=== PATIENT | female | born 1980 | race Caucasian/White ===

== ENCOUNTER → 2017-12-28 03:09 | Outpatient (CLI) | payer OTHER, SELFPAY ==
[2017-12-28 09:33] LABS: ALT 17 U/L (12-78); AST 10 U/L (15-37); Albumin 3.8 g/dL (3.4-5.0); Alkaline Phosphatase 98 U/L (46-116); Anion Gap 11.8 mmol/L (3-11); BUN 9 mg/dL (7-18); Bilirubin, Total 0.4 mg/dL (0.2-1.0); CO2 23.2 mmol/L (21.0-32.0); CREATININE 0.76 mg/dL (0.55-1.02); Calcium 8.9 mg/dL (8.5-10.1); Chloride 104 mmol/L (98-107); Cholesterol 205 mg/dL (50-200); Glucose 98 mg/dL (70-100); HDL Cholesterol 31 mg/dL (40-60); LDL CHOLESTEROL 147 mg/dL (<100); Potassium 4.4 mmol/L (3.5-5.1); Sodium 139 mmol/L (136-145); TSH (W/Ref FT4) 1.38 uIU/mL (0.358-3.74); Total Protein 7.3 g/dL (6.4-8.2); Triglyceride 224 mg/dL (30-150)
== END ==
DX: Z00.00 Encounter for general adult medical examination without abnormal findings (principal); E78.2 Mixed hyperlipidemia; R63.8 Other symptoms and signs concerning food and fluid intake; Z83.49 Family history of other endocrine, nutritional and metabolic diseases
CPT/HCPCS: 36415; 80053; 80061; 83721; 84443

== ENCOUNTER 2018-06-22 00:52 | Outpatient (CLI) | payer OTHER, SELFPAY ==
--- NOTE | 2018-06-22 07:59 | DI.RAD_ITS ---
SYMPTOM/DIAGNOSIS: RT HIP PAIN, M25.559 RIGHT HIP AND PELVIS: Two views were obtained. There appear to be mild degenerative changes of the lower lumbar spine and SI joints. There is minimal acetabular spurring bilaterally. No other significant bony abnormality is seen. Cartilaginous joint spaces of the hips appear well maintained.
== END 2018-06-22 01:12 ==
PROVIDERS: Visit Provider Emergency Medicine
DX: M25.551 Pain in right hip (principal); M47.816 Spondylosis without myelopathy or radiculopathy, lumbar region
CPT/HCPCS: 73502

== ENCOUNTER 2018-07-11 00:28 | Outpatient (CLI) | payer OTHER, SELFPAY ==
--- NOTE | 2018-07-11 10:06 | DI.MRI_ITS ---
SYMPTOM/DIAGNOSIS: RT HIP PAIN, S73.191A, S/P DISLOCATION A CHILD RIGHT HIP MRI: Routine noncontrast examination was performed. There is normal marrow signal. No evidence of an acute fracture or avascular necrosis is seen. The muscles show normal signal and size. No significant muscular fatty atrophy is appreciated. There is a normal amount of fluid in the joint space. No focal fluid collection or soft tissue mass is appreciated. The right labrum appears grossly unremarkable on this noncontrast examination. IMPRESSION: Negative MRI of the right hip.
== END 2018-07-11 00:48 ==
PROVIDERS: Visit Provider Orthopaedic Surgery
DX: M25.551 Pain in right hip (principal)
CPT/HCPCS: 73721

== ENCOUNTER 2018-12-18 00:14 | Outpatient (CLI) | payer OTHER, SELFPAY ==
--- NOTE | 2018-12-18 08:44 | DI.MAMMO_ITS ---
SYMPTOM/DIAGNOSIS: SCREENING, Z12.31 MAMMOGRAMS: Mammograms were interpreted according to the usual protocol including computer analysis with CAD system, tomosynthesis and C view imaging. This is a baseline examination. The breasts are composed of scattered fibroglandular densities, breast density, Category B. No suspicious masses or suspicious microcalcifications are seen. IMPRESSION: Category 1, negative mammogram. Yearly screening mammography is recommended. [facility] ASSESSMENT OF FINDINGS: Negative. Category 1. Patient will receive a letter notifying them of these results. BI-RADS category B. There are scattered areas of fibroglandular density.
[2018-12-18 09:49] LABS: ALT 24 U/L (12-78); AST 13 U/L (15-37); Albumin 3.7 g/dL (3.4-5.0); Alkaline Phosphatase 91 U/L (46-116); Anion Gap 11.3 mmol/L (3-11); BUN 12 mg/dL (7-18); Bilirubin, Total 0.4 mg/dL (0.2-1.0); CO2 24.7 mmol/L (21.0-32.0); CREATININE 0.67 mg/dL (0.55-1.02); Calcium 9.1 mg/dL (8.5-10.1); Chloride 104 mmol/L (98-107); Glucose 96 mg/dL (70-100); Sodium 140 mmol/L (136-145); Total Protein 7.2 g/dL (6.4-8.2)
== END 2018-12-18 00:34 ==
DX: Z12.31 Encounter for screening mammogram for malignant neoplasm of breast; Z00.00 Encounter for general adult medical examination without abnormal findings; Z13.1 Encounter for screening for diabetes mellitus
CPT/HCPCS: 36415; 77063; 77067; 80053

== ENCOUNTER 2019-01-18 17:08 | Outpatient (REF) | payer OTHER, SELFPAY ==
--- NOTE | 2019-01-18 16:00 | PAPFT_PTH ---
PATIENT: Kati Zamarripa LOC: [facility] U#:[id number] AGE/SX: 38/F ROOM: RE01/18/[address]: Daniela Estrada APRN : 1980 BED: DIS: 01/18/2019 SPEC #: [id number] RECD: 01/19/19 13:07 STATUS: CHRISTY GUZMÁN #: [id number] BRIAN: 01/18/19 16:[address]: Daniela Estrada DEPT: [facility] [place] Cytology RECD BY: Debra Palacios Tissues: 1 - CX/ENDOCX FOR PAP SMEARS Procedures: PAP THIN PREP/UVM Screening HPV DNA PROBE Comments: [id number]
== END 2019-01-18 17:28 ==
LOC: LBN 17:08
DX: Z12.4 Encounter for screening for malignant neoplasm of cervix (principal); Z11.51 Encounter for screening for human papillomavirus (HPV)
CPT/HCPCS: 88142; 87624

== ENCOUNTER 2019-04-24 07:00 | Outpatient (CLI) | payer OTHER, SELFPAY ==
[2019-04-24 11:03] LABS: HCT 43.4 % (36.0-46.0); HGB 14.5 g/dL (12.0-15.5); Mean Corp. HGB Concentration 33.4 g/dL (32.0-36.0); Mean Corpuscular Hemoglobin 32.4 pg (27.0-33.0); Mean Corpuscular Volume 96.9 fL (80-95); Mean Platelet Volume 9.6 fL (8.0-11.0); Platelet Count 454 x1000/uL (130-400); RBC 4.48 m/cumm (4.00-5.20); RBC Distribution Width 12.2 % (11.7-14.6); White Blood Cell Count 14.66 k/cumm (4.4-10.8)
[2019-04-24 13:23] LABS: Abs Immature Grans 0.03 k/cumm (0.0-0.09); Absolute Basophil Count 0.06 k/cumm (0.0-0.2); Absolute Eosinophil Count 0.14 k/cumm (0.0-0.7); Absolute Lymphocyte Count 2.78 k/cumm (1.2-3.4); Absolute Monocyte Count 1.04 k/cumm (0.11-0.7); Absolute Neutrophil Count 10.33 k/cumm (1.2-6.7); Basophils % 0.4; Immature Grans % 0.2; Lymphocytes % 19.3; Monocytes % 7.2; Neutrophils % 71.9
== END 2019-04-24 07:20 ==
PROVIDERS: Visit Provider Nurse Practitioner
DX: D72.829 Elevated white blood cell count, unspecified (principal)
CPT/HCPCS: 36415; 85027; 85007; 85025

== ENCOUNTER 2019-07-24 09:17 | Outpatient (CLI) | payer OTHER, SELFPAY ==
[2019-07-24 10:02] LABS: Abs Immature Grans 0.02 k/cumm (0.0-0.09); Absolute Basophil Count 0.06 k/cumm (0.0-0.2); Absolute Eosinophil Count 0.15 k/cumm (0.0-0.7); Absolute Lymphocyte Count 3.44 k/cumm (1.2-3.4); Absolute Monocyte Count 0.87 k/cumm (0.11-0.7); Absolute Neutrophil Count 6.71 k/cumm (1.2-6.7); Basophils % 0.5; Eosinophils % 1.3; HCT 44.4 % (36.0-46.0); HGB 15.4 g/dL (12.0-15.5); Immature Grans % 0.2 %; Lymphocytes % 30.6; Mean Corp. HGB Concentration 34.7 g/dL (32.0-36.0); Mean Corpuscular Hemoglobin 32.9 pg (27.0-33.0); Mean Corpuscular Volume 94.9 fL (80-95); Mean Platelet Volume 9.2 fL (8.0-11.0); Monocytes % 7.7; Neutrophils % 59.7; Platelet Count 467 x1000/uL (130-400); RBC 4.68 m/cumm (4.00-5.20); RBC Distribution Width 12.5 % (11.7-14.6); White Blood Cell Count 11.24 k/cumm (4.4-10.8)
[2019-07-24 10:39] LABS: HCG Quant, Pregnancy < 1 mIU/mL (1-3)
== END 2019-07-24 09:37 ==
PROVIDERS: Visit Provider Obstetrics & Gynecology
DX: Z30.09 Encounter for other general counseling and advice on contraception (principal)
CPT/HCPCS: 36415; 84702; 85025

== ENCOUNTER 2019-07-26 06:36 | Day surgery (SDC) | payer OTHER, SELFPAY ==
[2019-07-26 06:40] VITALS: BP 123/77; PULSE 98; RESP 18; TEMP 36.5; O2SAT 98
[2019-07-26] MEDS: Lactated Ringers 1,000 ML 125 ML IV (07:05)
[2019-07-26] MEDS: Bupivacaine 0.25% Pres-Free 30 ML VIAL (07:50)
--- NOTE | 2019-07-26 08:04 | FALL_PTH ---
PATIENT: Kati Zamarripa LOC: [facility] U#:[id number] AGE/SX: 38/F ROOM: RE07/26/[address]: Vic Ott MD : 1980 BED: DIS: 07/26/2019 SPEC #: [id number] RECD: 07/26/19 12:45 STATUS: CHRISTY REQ #: [id number] BRIAN: 07/26/19 08:[address]: Vic Ott DEPT: Surgical Specimen RECD BY: Debra Palacios ENTERED: 07/26/19 12:46 SP TYPE: Fall OTHR DR: Daniela Estrada APRN Tissues: 1 - FALLOPIAN TUBE (STERILIZATION) 2 - FALLOPIAN TUBE (STERILIZATION) Procedures: GROSS AND MICRO LEVEL 2 Comments: [id number]
[2019-07-26 08:27] VITALS: BP 111/57; PULSE 93; RESP 17; TEMP 36.6; O2SAT 98
[2019-07-26 08:32] VITALS: BP 98/76; PULSE 91; RESP 19; TEMP 36.6; O2SAT 97
[2019-07-26 08:37] VITALS: BP 108/66; PULSE 90; RESP 15; TEMP 36.6; O2SAT 98
[2019-07-26 08:52] VITALS: BP 108/55; PULSE 87; RESP 17; TEMP 36.4; O2SAT 98
[2019-07-26 09:36] VITALS: BP 114/72; PULSE 87; RESP 18; TEMP 36.5; O2SAT 97
--- NOTE | 2019-07-26 12:20 | ROE_ITS ---
Date of service: 07/26/19 Time of Service: 12:20 Operative Note Operative Note DATE OF PROCEDURE: 07/26/19 PRE-OP DIAGNOSIS: Multiparity and desire for permanent sterilization POST-OP DIAGNOSIS: same PROCEDURE: Laparoscopic bilateral salpingectomy SURGEON: Vic Ott ASSISTING SURGEON: Rachel Gaxiola ANESTHESIA: GETA and local ESTIMATED BLOOD LOSS: 5 PATHOLOGY: other (Bilateral fallopian tubes) COMPLICATIONS: None Patient was transported to: PACU Patient's condition: stable Findings: Normal uterus, tubes and ovaries Procedure Description: The patient was taken to the operating room and after adequate general anesthesia was obtained the patient was placed in supine position. The patient was prepped and draped in the usual sterile manner. The skin and subcutaneous tissues at the umbilicus were infiltrated with 0.25% Marcaine solution. A small infraumbilical skin incision was then made with a #15 blade scalpel. Sharp dissection was carried down to the underlying layer of fascia. The fascia was grasped and elevated with 2 Cali clamps and incised sharply with the scalpel the peritoneum was entered sharply with a hemostat and S retractors were placed. 2 sutures of 0 Vicryl were placed on either side of the fascial incision. The 10 mm balloon trocar was advanced through the inc ision and secured in place. A pneumoperitoneum to approximately 15 mmHg was established. Two 5 mm ports were placed in the right lower and left lower quadrants both under direct visualization. Laparoscopic exam was normal. Uterus, tubes and ovaries were normal in appearance. Dissection was first carried across the right mesosalpinx with the LigaSure device. Dissection was carried to the proximal fallopian tube which was transected. The fallopian tube was removed from the abdomen. A similar procedure was carried out on the opposite side. Excellent hemostasis was noted. Both ovaries were noted to be normal in appearance. The 5 mm trochars were removed. The abdomen was desufflated and the 10 mm umbilical port was removed. The fascia at the umbilicus was closed with the 2 previously placed sutures of 0 Vicryl. Skin incisions were closed with interrupted sutures of 4 Monocryl and Dermabond was applied. Sponge, lap and needle counts were correct at the conclusion of the procedure. The patient was transferred to PACU in stable condition.
== END 2019-07-26 10:00 | disposition home or self-care (01) ==
PROVIDERS: Visit Provider Obstetrics & Gynecology
PROC: (CPT 58661; principal; 2019-07-26 07:30)
DX: Z30.2 Encounter for sterilization (principal)
CPT/HCPCS: 58661; 88302; J1100; J1885; J2250; J2405; J2704

== ENCOUNTER 2020-01-09 01:10 | Outpatient (CLI) | payer OTHER, SELFPAY ==
--- NOTE | 2020-01-09 06:15 | DI.MAMMO_ITS ---
EXAM: MG MAMMO SCREENING CLINICAL HISTORY: screening,Z12.39 TECHNIQUE: Mammograms were interpreted according to the usual protocol including computer analysis w E-Semble CAD system, tomosynthesis and C-view imaging. COMPARISON: FINDINGS: The breasts are of moderate density with fairly symmetrical distribution of fibroglandular tissue. N o dominant mass or clumped microcalcification is identified in either breast. The current examinatio n is compared with previous examination of December 2018 there has been no gross interval change appear ance comparison with previous study. IMPRESSION: No specific evidence of malignancy at this time. Routine screening examinations are suggested at yea rly intervals in this age group according to the ACR guidelines. BI-RADS Category 1 - Negative Breast Density - Category B - Scattered areas of fibroglandular density
== END 2020-01-09 01:30 ==
DX: Z12.31 Encounter for screening mammogram for malignant neoplasm of breast (principal); R92.2 Inconclusive mammogram
CPT/HCPCS: 77063; 77067

== ENCOUNTER 2020-02-15 04:26 | Outpatient (CLI) | payer OTHER, SELFPAY ==
[2020-02-15 08:26] LABS: Abs Immature Grans 0.03 10^3/uL (0.0-0.06); Absolute Basophil Count 0.09 10^3/uL (0.0-0.2); Absolute Lymphocyte Count 3.14 10^3/uL (1.2-3.4); Absolute Monocyte Count 0.96 10^3/uL (0.1-0.8); Basophils % 0.7; Eosinophils % 2.4; HCT 43.2 % (36.0-46.0); HGB 14.8 g/dL (11.2-15.7); Immature Grans % 0.2; Lymphocytes % 24.9; MCH 32.2 pg (27.0-33.0); MCHC 34.3 % (32.0-36.0); MCV 94.1 fL (80-95); MPV 9.5 fL (8.0-11.0); Monocytes % 7.6; Neutrophils % 64.2; Nucleated RBC 0 %; Platelet Count 496 10^3/uL (130-400); RBC 4.59 10^6/uL (3.93-5.22); RDW 12.1 % (11.7-14.6); RDW-SD 41.9 fL; WBC 12.61 10^3/uL (4.4-10.8)
[2020-02-15 09:03] LABS: ALT 24 U/L (14-59); AST 11 U/L (15-37); Albumin 3.8 g/dL (3.4-5.0); Alkaline Phosphatase 106 U/L (46-116); Anion Gap 7.1 mmol/L (3-11); BUN 12 mg/dL (7-18); Bilirubin, Total 0.2 mg/dL (0.2-1.0); CO2 24.9 mmol/L (21.0-32.0); CREATININE 0.68 mg/dL (0.55-1.02); Calcium 9.3 mg/dL (8.5-10.1); Calculated LDL 144 mg/dL (<100); Chloride 103 mmol/L (98-107); Cholesterol 249 mg/dL (<200); Glucose 108 mg/dL (74-106); HDL Cholesterol 34 mg/dL (40-60); Potassium 4.3 mmol/L (3.5-5.1); Sodium 135 mmol/L (136-145); Total Protein 7.3 g/dL (6.4-8.2); Triglyceride 359 mg/dL (<150)
== END 2020-02-15 04:46 ==
DX: Z00.00 Encounter for general adult medical examination without abnormal findings (principal); E78.5 Hyperlipidemia, unspecified; D72.829 Elevated white blood cell count, unspecified
CPT/HCPCS: 36415; 80053; 80061; 85025

== ENCOUNTER 2021-01-21 02:29 | Outpatient (CLI) | payer OTHER, SELFPAY ==
--- NOTE | 2021-01-21 07:40 | DI.MAMMO_ITS ---
Exam(s) MAMMO SCREENING EXAM: MAMMO SCREENING CLINICAL HISTORY: screening,Z12.39. TECHNIQUE: Bilateral full field digital CC and MLO mammographic images were obtained with 3D tomosyn thesis and utilizing computer aided detection (CAD). COMPARISON: Prior mammograms dating back to 2018, the most recent being December 2019. FINDINGS: There has been no significant change in the appearance and distribution of the fibroglandular tissue. There are no new spiculated masses nor malignant appearing microcalcification groups. Benign-appearing nodule in the right breast is unchanged from prior studies has the appearance a osman gn lymph node There is no significant architectural distortion nor skin thickening-retraction. IMPRESSION: Stable benign findings. No radiographic evidence of malignancy BI-RADS Category 2 - Benign Findings Breast Density - Category B - Scattered areas of fibroglandular density Breast density Category C or D implies that the patient has dense breast tissue. Dense breast tissue can make it harder to find cancer on a mammogram. Dense breast tissue is also associated with an incr eased risk of breast cancer. This information about the result of the mammogram report was provided to the patient to raise their awareness. Use this report when you speak with the patient about their risks for breast cancer, which includes their family history. At that time, you may recommend additional screening tests (Ultrasoun d or MRI) as these tests may add significant information. A negative radiographic report should not delay biopsy if a dominant or clinically suspicious mass is present. Up to ten percent of cancers are not identified on mammography. A negative report may reinforce clinical impression. Adenosis and dense breasts may obscure an underlying neoplasm. False positive reports average 6 to 10%. Patient will receive a letter notifying them of these results.
== END 2021-01-21 02:49 ==
DX: Z12.31 Encounter for screening mammogram for malignant neoplasm of breast (principal)
CPT/HCPCS: 77063; 77067

== ENCOUNTER 2021-09-16 08:55 | Outpatient (REF) | payer OTHER, SELFPAY ==
--- NOTE | 2021-09-16 08:30 | PAPFT_PTH ---
PATIENT: Kati Zamarripa LOC: [facility] U#:[id number] AGE/SX: 40/F ROOM: RE09/16/[address]: Curtis Westfall NP : 1980 BED: DIS: 09/16/2021 SPEC #: [id number] RECD: 09/16/21 15:35 STATUS: CHRISTY REKeenan #: [id number] BRIAN: 09/16/21 08:[address]: Curtis Westfall DEPT: [facility] [place] Cytology RECD BY: Sole Gomez ENTERED: 09/16/21 15:36 SP TYPE: PAPFT OTHR DR: Daniela Estrada APRN Tissues: 1 - CX/ENDOCX FOR PAP SMEARS Procedures: PAP THIN PREP/UVM Screening HPV DNA PROBE Comments: [id number]
== END 2021-09-16 08:56 | disposition home or self-care (01) ==
LOC: LBN 08:55
PROVIDERS: Visit Provider Nurse Practitioner Family
DX: Z12.4 Encounter for screening for malignant neoplasm of cervix (principal); Z11.51 Encounter for screening for human papillomavirus (HPV)
CPT/HCPCS: 88142; 87624

== ENCOUNTER → 2022-01-25 01:55 | Outpatient (CLI) | payer OTHER, SELFPAY ==
--- NOTE | 2022-01-25 07:41 | DI.MAMMO_ITS ---
Exam(s) MAMMO SCREENING EXAM: MAMMO SCREENING CLINICAL HISTORY: screening,Z12.39. TECHNIQUE: Bilateral full field digital CC and MLO mammographic images were obtained with 3D tomosyn thesis and utilizing computer aided detection (CAD). COMPARISON: Prior mammograms were reviewed, the most recent being January 2021.. FINDINGS: There has been no significant change in the appearance and distribution of the fibroglandular tissue There are no new spiculated masses nor malignant appearing microcalcification groups. Benign-appearing lymph node in the right breast is unchanged prior studies There is no significant architectural distortion nor skin thickening-retraction. IMPRESSION: No radiographic evidence of malignancy. BI-RADS Category 1 - Negative Breast Density - Category B - Scattered areas of fibroglandular density Breast density Category C or D implies that the patient has dense breast tissue. Dense breast tissue can make it harder to find cancer on a mammogram. Dense breast tissue is also associated with an incr eased risk of breast cancer. This information about the result of the mammogram report was provided to the patient to raise their awareness. Use this report when you speak with the patient about their risks for breast cancer, which includes their family history. At that time, you may recommend additional screening tests (Ultrasoun d or MRI) as these tests may add significant information. A negative radiographic report should not delay biopsy if a dominant or clinically suspicious mass is present. Up to ten percent of cancers are not identified on mammography. A negative report may reinforce clinical impression. Adenosis and dense breasts may obscure an underlying neoplasm. False positive reports average 6 to 10%. Patient will receive a letter notifying them of these results.
== END ==
PROVIDERS: PCP Nurse Practitioner Family; Visit Provider Nurse Practitioner Family
DX: Z12.31 Encounter for screening mammogram for malignant neoplasm of breast (principal)
CPT/HCPCS: 77063; 77067

== ENCOUNTER 2023-01-21 02:05 | Outpatient (CLI) | payer OTHER, SELFPAY ==
[2023-01-21 07:50] LABS: Hemoglobin A1C 5.7 % (<5.7)
[2023-01-21 08:18] LABS: Calculated LDL 109 mg/dL (<100); Cholesterol 232 mg/dL (<200); HDL Cholesterol 44 mg/dL (40-60); Triglyceride 397 mg/dL (<150)
== END 2023-01-21 02:06 | disposition home or self-care (01) ==
LOC: LBO 02:06
PROVIDERS: PCP Nurse Practitioner Family; Visit Provider Nurse Practitioner Family
DX: E78.5 Hyperlipidemia, unspecified (principal); Z13.1 Encounter for screening for diabetes mellitus
CPT/HCPCS: 36415; 80061; 83036

== ENCOUNTER 2023-02-16 10:25 | Outpatient (CLI) | payer OTHER, SELFPAY ==
--- NOTE | 2023-02-16 09:00 | DI.RAD_ITS ---
Exam(s) XR KNEE LT 3V AP,LAT,PRIYANKA EXAM: XR KNEE LT 3V AP,LAT,PRIYANKA CLINICAL HISTORY: left knee pain. TECHNIQUE: 2D digital imaging was performed. Three views. COMPARISON: No exams were available for comparison FINDINGS: BONES: No acute fracture is present. No bony destructive lesion is seen. There has been prior ACL re pair. Screws also noted in the proximal tibia in the region of the tibial tubercle. There are enthe sophytes at the patella. There is mild spurring at the patellofemoral joint. There is mild narrowin g of the medial femoral tibial joint space. There is spurring from the medial femoral condyle and me dial tibial plateau. JOINTS: The knee is normally aligned. A small joint effusion is seen. There is a loose body visible a nterior to the level of the tibial spines. SOFT TISSUE: Normal. IMPRESSION: Postsurgical and degenerative changes. Small joint effusion and joint space loose body. DATA REPOSITORY: RADIATION DOSE DELIVERED:
== END 2023-02-16 10:26 | disposition home or self-care (01) ==
LOC: DIORS 10:25
PROVIDERS: PCP Nurse Practitioner Family; Visit Provider Student in an Organized Health Care Education/Training Program
DX: M25.562 Pain in left knee (principal); Z98.890 Other specified postprocedural states
CPT/HCPCS: 73562

== ENCOUNTER → 2023-06-02 02:34 | Outpatient (CLI) | payer OTHER, SELFPAY ==
--- NOTE | 2023-06-02 07:00 | DI.MRI_ITS ---
Exam(s) MR LOWER JOINT LT WO EXAM: MR LOWER JOINT LT WO CLINICAL HISTORY: pain,internal derangement lt knee,m23.92. TECHNIQUE: Multiplanar multisequence MRI was performed. COMPARISON: CR XR KNEE LT 3V AP,LAT,PRIYANKA from 02/16/2023 FINDINGS: BONES: There is no fracture or contusion pattern. Screws noted in distal femur and proximal tibia r elated to prior ACL repair. Spurring from the femoral condyles and tibial plateaus. JOINTS: A moderate sized joint effusion is present. An 11 Millin ovoid loose body is noted in the j oint effusion adjacent to the lateral femoral condyle. Articular cartilage: Patellofemoral joint: Focal defect seen at patellar apex extending nearly down to bone. Some thinning of cartilage over medial patellar facet. Medial femoral tibial joint: Articular cartilage is unremarkable. Lateral femoral tibial joint: Articular cartilage is unremarkable. TENDONS: Extensor mechanism: Unremarkable. Medial retinaculum: Unremarkable. Lateral retinaculum: Unremarkable. Popliteus: Unremarkable. MUSCLES: Unremarkable. MENISCI: The medial meniscus shows a longitudinally oriented tear in the posterior horn. Degenerative changes in the body. The lateral meniscus is unremarkable. SOFT TISSUES: Tiny Page's cyst containing 3 millimeter loose body.. LIGAMENTS: Anterior Cruciate: ACL repair. Intact. Posterior Cruciate: Unremarkable. Medial Collateral:Unremarkable. Lateral Collateral: Unremarkable. IMPRESSION: Longitudinally oriented tear of the posterior horn of the medial meniscus. Intact ACL repair. Focal cartilage defect at patellar apex extending nearly down to bone. Moderate joint effusion with loose body adjacent to lateral femoral condyle. Small Page's cyst with loose body. DATA REPOSITORY:
== END ==
PROVIDERS: PCP Nurse Practitioner Family; Visit Provider Student in an Organized Health Care Education/Training Program
DX: M23.222 Derangement of posterior horn of medial meniscus due to old tear or injury, left knee (principal)
CPT/HCPCS: 73721

== ENCOUNTER 2023-07-28 11:05 | Day surgery (SDC) | payer OTHER, SELFPAY ==
[2023-07-28] VITALS (8 sets, daily range): BP systolic 103–143; BP diastolic 56–82; PULSE 85–91; RESP 16–26; TEMP 36.4–37; O2SAT 93–99; BMI 39.6
--- NOTE | 2023-07-28 10:01 | W.PM.DSUDISC ---
Date of service: 07/28/23 Time of Service: 15:00 Discharge Plan Disposition Patient Disposition: Home Discharge Details Attending Provider: Fidencio Kamara Primary Care Provider: Curtis Westfall Home Meds and New Rx's Prescriptions: New aspirin 81 mg tablet,delayed release (DR/EC) 81 mg PO DAILY 14 Days Qty: 14 0RF naproxen 250 mg tablet 250 - 500 mg PO BID PRNQty: 40 0RF Rx Instructions: take with a meal Continued acetaminophen [Tylenol] 325 mg capsule 325 mg PO ONCE PRN naproxen 250 mg tablet 250 mg PO BID PRN Discontinued ibuprofen 200 mg tablet 200 mg PO Q6H PRN Discharge Instructions Additional Instructions: Surgery: Left knee arthroscopy with loose body removal, partial medial and lateral meniscectomy, and extensive debridement; Significant medial and patellofemoral chondromalacia Activity: Weightbearing as tolerated. Advance range of motion as comfort allows. No knee brace or crutches needed as soon as comfortable. Recommend avoiding sports, pivoting, and squatting for 6-8 weeks. A physical therapy prescription will be sent electronically to start in 2 to 3 weeks. Prescriptions: Aspirin 81 mg take 1 daily to prevent a blood clot for 14 days Naproxen 250 mg take 1-2 every 12 hours with a meal as needed for moderate pain You may use [id number]-vrz-wswzlqj Tylenol (acetaminophen) as needed for mild pain. These pain medications may be taken all at once or in different combinations as needed. Also, recommend Colace (docusate) as a stool softener as surgery and pain medicine cause constipation. You may try nfkt-orj-elrkovl diphenhydramine (Benadryl) 25-50 mg nightly as a sleep aid Dressings: Leave dressing in place for 3 days. May then remove and leave open to air or cover incisions with Band-Aids. Leave the sticky Steri-Strips in place until they fall off or remove them after you shower. May shower after 5 days. Follow-up: 10-[address] Kamara You may take off the leg compression stockings this evening at home. You may also leave them on a few days longer if you have a history of leg swelling or edema. Let us know right away if you develop any redness, drainage, fevers, chest pain, or trouble breathing. Do not drink alcohol or drive for at least 24 hours after anesthesia. Please call the office during business hours with any questions or concerns. DS: Diagnosis Discharge Diagnosis (1) Loose body of left knee: Status: Acute (2) Acute medial meniscus tear of left knee: Status: Acute (3) Chondromalacia, left knee: Status: Acute
--- NOTE | 2023-07-28 10:04 | ROE_ITS ---
Date of service: 07/28/23 Time of Service: 14:30 Operative Note Operative Note DATE OF PROCEDURE: 07/28/23 PRE-OP DIAGNOSIS: Left knee 1. Medial meniscus tear 2. Loose body 3. Chondromalacia POST-OP DIAGNOSIS: same Left knee 1. Medial & lateral meniscus tears 2. Loose body removal 3. Chondromalacia PROCEDURE: Left knee arthroscopy with: 1. Partial medial lateral meniscectomy, CPT #06952 2. Loose body removal, CPT# 45235 3. Extensive debridement, CPT# 22324: Including intercondylar osteochondroplasty, debride partial ACL tearing and cyclops lesion, patellar and trochlear chondroplasty, and suprapatellar lysis of adhesions SURGEON: Fidencio Kamara RESEARCH QUALITY ASSURANCE ANALYST: None None ANESTHESIA TYPE: Local By Surgeon and General LMA/ETT Refer to Anesthesia Record ESTIMATED BLOOD LOSS: 1 PATHOLOGY: none sent TOURNIQUET TIME: 0 Patient was transported to: PACU Patient's condition: stable Indications: Please see complete medical record for details. Findings: Exam under anesthesia: Near full extension, flexion to about 130 degrees limited by soft tissue envelope. Stiff?stable Rojas varus and valgus. Arthroscopic findings: Obvious large ovoid loose body about 15 x 10 x 8 mm in the suprapatellar pouch. Significant grade IV chondromalacia medial femoral condyle distally and anteriorly involving the medial and patellofemoral compartments. Moderate chondromalacia throughout the remainder of the medial compartment. Moderately large intercondylar osteophytes impinging on the ACL graft. Mild to moderate chondromalacia lateral compartment. Narrowing medial compartment with degenerative type posterior horn medial meniscus tear. ACL graft with small bulbous cyclops partial lesion anterior distally and fraying of the fibers anteriorly. Small posterior horn and body separate white zone lateral meniscus tears. Procedure Description: In the operating room, general anesthesia was induced. The patient was positioned supine on the operating room table. All bony prominences were well- padded. Preoperative antibiotics were administered. The knee was prepped and draped in the usual sterile fashion. The correct patient, procedure, and side of the procedure were all verified prior to incision. Exam under anesthesia was performed. 10 cc of 0.25% bupivacaine containing epinephrine was infiltrated about the planned anteromedial and anterolateral knee arthroscopy portals. The portals were established and a complete diagnostic arthroscopy was performed with relevant findings detailed above. New portals were used in line with the skin creases her old portals were not in the best locations. Immediately the large ovoid loose body was encountered in the suprapatellar space. It measured about 15 x 10 x 8 mm. It was secured in a pituitary rongeur, but too large to remove through the standard anterior medial portal. The portal was extended and dilated. The loose body was still too large to be removed in entirety. The pituitary rongeur was used to split the loose body into 2 smaller fragments and each was carefully secured and removed under direct visualization. They were then placed into a specimen cup for the patient. An extensive debridement was then done to thoroughly optimize this relatively young patient's knee despite the higher than expected degenerative changes. Starting in the suprapatellar space, the mechanical shaver was used to perform a lysis of adhesions. The undersurface of the patella had a focal high-grade cartilage lesion and the medial trochlea had unstable cartilage flaps adjacent to the full-thickness cartilage loss more medially and distally. The mechanical shaver was used to resect and smooth the rough cartilage edges and establish as best possible smooth stable cartilage margins. Next, the intercondylar area was opened using the mechanical shaver to remove impinging osteophytes cartilage and bone largest from the medial femoral condyle. The ACL was then exposed and the prior graft had partial tearing anteriorly and a small bulbous cyclops type lesion anteriorly. The partial tear was debrided with mechanical shaver and the bulbous lesion was resected as well. The medial meniscus tear was then inspected, which was difficult given the medial compartment narrowing and surrounding degenerative changes. As best possible alternating between meniscal biter mechanical shaver the posterior horn medial meniscus tear was debrided to a stable margin. In the [id number] position, the lateral meniscus then demonstrated small tearing which was debrided with the mechanical shaver at the body and posterior horn near the root white zone tears. Under direct arthroscopic visualization an 18-gauge needle was passed into the knee from superolateral into the suprapatellar pouch. The knee was copiously irrigated with arthroscopic fluid until there was a clear effluent before being drained of all fluid. The anteromedial and anterolateral portals were closed in 3-0 Monocryl in a buried interrupted fashion. 20 cc of 0.25% bupivacaine with epinephrine containing 4 mg of morphine was infiltrated into the knee through the previously placed needle. Mastisol, Steri-Strips, and 4 x 4 gauze were applied over the incisions followed by sterile soft roll. The knee was then wrapped gently with an RUBA comressive bandage. The patient awoke from anesthesia without complication and was transferred to the recovery room in a stable condition.
[2023-07-28] MEDS: Lactated Ringers 1,000 ML 30 ML IV (11:32)
--- NOTE | 2023-07-28 12:27 | W.ANESPRE ---
General Info Date of Service Date Performed: 07/28/23 Height: 5 ft 1 in Weight: 95.2 kg Body Mass Index (BMI): 39.6 Surgical Procedure: Operation Date: 07/28/23 13:10 Proposed Procedure Side Surgeon p Knee Arthroscopy w Medial Meniscus Repair VS Meniscectomy Left Fidencio Kamara MD Meds Allergies and Home Medications Allergies Allergy/AdvReac Type Severity Reaction Status Date / Time narcotics AdvReac Other (See Uncoded 07/26/23 10:02 Comment) Home Medication Medication Instructions Recorded acetaminophen 325 mg capsule 325 mg PO ONCE PRN 02/16/23 (Tylenol) naproxen 250 mg tablet 250 mg PO BID PRN 02/16/23 Current Visit Medications: Current Medications Generic Name Dose Route Start Last Admin Trade Name Freq PRN Reason Stop Dose Admin Ringer's Solution 1,000 mls @ 30 mls/hr 07/28/23 06:00 07/28/23 11:32 IV 07/28/23 23:59 30 mls/hr INFUSION GABRIEL Administration Cefazolin Sodium/Dextrose 2 gm in 50 mls @ 100 mls/hr 07/28/23 06:00 Ancef Duplex IVPB 07/28/23 23:59 PREOP GABRIEL IV Miscellaneous Supplies 1 each 07/28/23 06:00 Iv Access IV 07/28/23 23:59 DIRECTED GABRIEL Sodium Chloride 0 ml 07/28/23 06:00 Normal Saline Flush 10 Ml Syr IV 07/28/23 23:59 PRN PRN Sodium Chloride 0 ml 07/28/23 06:00 Normal Saline 10 Ml Vial IJ 07/28/23 23:59 DIRECTED PRN Sterile Water 0 ml 07/28/23 06:00 Water,Injection,Sterile 10 Ml Vial IJ 07/28/23 23:59 DIRECTED PRN PFSH Active Problems Active Problems: Problem Status Onset Code Loose body of left knee M23.42 Acute medial meniscus tear of left knee S83.242A Chondromalacia, left knee M94.262 Diarrhea R19.7 Labial cyst N90.7 White coat syndrome without diagnosis of hypertension R03.0 Hyperlipidemia E78.5 Hypoglycemic reaction E16.1 Elevated WBC count D72.829 Increased body mass index (BMI) R63.8 Lumbar disc prolapse with compression radiculopathy 03/13/13 M51.16 Smoker 12/12/17 F17.200 Medical History Medical History Elevated BP without diagnosis of hypertension External hemorrhoid (12/12/17) Heat syncope (05/01/12) Medical History Comments:: Sometimes wakes up from anesthesia aggressive (per patient she usually wakes up swinging) Surgical History Surgical History History of tubal ligation History of knee surgery Status post foot surgery Knee surgeries [id number] Foot surgeries 2000 Tobacco Smoking/Tobacco Use Status: Current every day Tobacco Type: cigarettes Passive smoking exposure: Yes Second hand exposure: Yes Alcohol Alcohol Intake: current Alcohol intake frequency: a few times a month Alcohol type: beer Substance Use Substance use: Never Substance use type: does not use Prental History History 0 Para Hx # Term Pregnancies Multiple births Hx # Pregnancies Ectopic pregnancies AB induced Hx Number of Living Children AB spontaneous Vital Signs and Lab Results Vital Signs Most Recent Vital Signs in EMR: Most Recent Vital Signs Temp Pulse Resp BP Pulse Ox 37 C 91 H 18 143/82 H 96 07/28/23 11:18 07/28/23 11:18 07/28/23 11:18 07/28/23 11:18 07/28/23 11:18 Point of Care Results Point of Care Results: POC- Test(urine) Negative 07/28/23 11:31 Lab Results Blood Type / Crossmatch: No Data to Display Complete Blood Count: No Data to Display Complete Metabolic Panel: No Data to Display Liver Function Panel: No Data to Display Coagulation Panel: No Data to Display Cardiac Panel: No Data to Display Arterial Blood Gas: No Data to Display Venous Blood Gas: No Data to Display Pancreas Panel: No Data to Display Thyroid Panel: No Data to Display Infectious Disease: No Data to Display Blood Cultures: No Data to Display Toxicology Panel: No Data to Display Panel: No Data to Display Imaging and Studies Imaging and Studies Study information below may be from another EMR and interpreted by another provider. Please see original notes in EMR for more complete details. Other Study Summary:: L spine MRI reviewed and result in chart Anesthesia Assessment and Plan Anesthesia History Personal History: No History of Anesthesia Complications Family History: Other (aggression upon emergence per pt ) Exercise Tolerance Exercise Tolerance: Metabolic Equivalents>4 Pertinent Negatives Pertinent Negatives: No Symptoms of GERD, No Major Cardiovascular Symptoms or Complaints, No Major Pulmonary Symptoms or Complaints and No History of CVA/TIA Cardiac & Pulmonary Exam Cardiac Exam: Normal S1/S2 Heart Sounds Pulmonary Exam: Clear Bilateral Breath Sounds Implantable Cardiac Device Does patient have a Pacemaker or an ICD?: No Airway Exam Known Difficult Airway: No Mallampati Class: 2 Mouth Opening: Normal (> 3cm) Thyromental Distance: Greater than 3 cm Neck Range of Motion: Full ROM Neck Circumference: Thick Teeth Condition: Normal Dentition ASA Classification ASA Score: ASA 2 Emergency Case?: No NPO Status NPO Status: NPO Clears >2 hours, Solids >8 hours Status Status: Negative HCG Anesthesia Plan Resuscitation Status: Full Code Anesthesia Technique: General Anesthesia Airway Planned: Endotracheal Tube Monitors Used: Standard Monitors and SedLine
[2023-07-28] MEDS: ceFAZolin 2 GM/50 ML BAG IVPB (13:33)
[2023-07-28] MEDS: Tranexamic Acid 1,000 MG/10 ML VIAL 1000 MG (13:38)
[2023-07-28] MEDS: Normal Saline 100 ML 360 ML (13:38)
[2023-07-28] MEDS: EPINEPHrine 10 MG/10 ML ML (14:00)
[2023-07-28] MEDS: MORPHine 4 MG/ML SYR (14:13)
[2023-07-28] MEDS: Albuterol/Ipratropium 3 ML UPD VIAL UPD (14:43)
--- NOTE | 2023-07-28 15:13 | W.ANESPOSTOP ---
Postoperative Evaluation Date, Time and Location Date Performed: 07/28/23 Time Performed: 15:13 Patient Location: PACU Vital Signs Most Recent Imported Vital Signs: Most Recent Vital Signs Temp Pulse Resp BP Pulse Ox 36.4 C L 89 19 113/74 96 07/28/23 15:10 07/28/23 15:10 07/28/23 15:10 07/28/23 15:10 07/28/23 15:10 Pain Score Most Recent Pain Score: Most Recent Pain Score Pain Level 0 07/28/23 11:18 Assessment Mental Status: Awake (Alert & Oriented to Patient Baseline) Airway and Respiratory Function: Patent airway with normal (patient baseline) respiratory exam Cardiovascular Function: Hemodynamically Stable Hydration Status: Adequately Hydrated Nausea & Vomiting: No Nausea or Vomiting Pain: Pain is tolerable per patient Peripheral Nerve Block: Patient did not receive a nerve block
== END 2023-07-28 16:16 | disposition home or self-care (01) ==
PROVIDERS: PCP Nurse Practitioner Family; Visit Provider Student in an Organized Health Care Education/Training Program
PROC: (CPT 29880; principal; 2023-07-28 13:00)
DX: S83.242A Other tear of medial meniscus, current injury, left knee, initial encounter (principal); M23.42 Loose body in knee, left knee; M94.262 Chondromalacia, left knee; X58.XXXA Exposure to other specified factors, initial encounter
CPT/HCPCS: 29880; 29876; 81025; J0131; J0690; J1100; J1805; J1885; J2001; J2250; J2270; J2405; J2704; J7620

== ENCOUNTER 2023-09-22 01:08 | Outpatient (CLI) | payer OTHER, SELFPAY ==
[2023-09-22 11:57] LABS: ALT 25 U/L (14-59); AST 15 U/L (15-37); Albumin 3.9 g/dL (3.4-5.0); Alkaline Phosphatase 103 U/L (46-116); BUN 13 mg/dL (7-18); Bilirubin, Total 0.3 mg/dL (0.2-1.0); CREATININE 0.8 mg/dL (0.55-1.02); Calcium 9.5 mg/dL (8.5-10.1); Calculated LDL 129 mg/dL (<100); Chloride 104 mmol/L (98-107); Cholesterol 226 mg/dL (<200); Estimated GFR 93.12 (mL/min/1.73m2); Glucose 107 mg/dL (74-106); HDL Cholesterol 43 mg/dL (40-60); Potassium 4.6 mmol/L (3.5-5.1); Sodium 141 mmol/L (136-145); TSH (W/Ref FT4) 1.23 uIU/mL (0.36-3.74); Total Protein 7.7 g/dL (6.4-8.2); Triglyceride 270 mg/dL (<150)
== END 2023-09-22 01:09 | disposition home or self-care (01) ==
LOC: LBO 01:08
PROVIDERS: PCP Nurse Practitioner Family; Visit Provider Nurse Practitioner Family
DX: Z13.1 Encounter for screening for diabetes mellitus (principal); E78.5 Hyperlipidemia, unspecified; Z13.29 Encounter for screening for other suspected endocrine disorder; Z00.00 Encounter for general adult medical examination without abnormal findings
CPT/HCPCS: 36415; 80053; 80061; 83036; 84443

== ENCOUNTER 2023-12-14 14:51 | Outpatient (CLI) | payer OTHER, SELFPAY ==
--- NOTE | 2023-12-14 14:45 | DI.RAD_ITS ---
Exam(s) XR KNEE LT 3V AP,LAT,PRIYANKA EXAM: XR KNEE LT 3V AP,LAT,PRIYANKA CLINICAL HISTORY: LEFT KNEE PAIN. TECHNIQUE: 2D digital imaging was performed of the left knee. Three images were obtained. Merchant ,AP and lateral views were obtained. COMPARISON: CR XR KNEE LT 3V AP,LAT,PRIYANKA from 02/16/2023 FINDINGS: BONES: No acute fracture is present. No bony destructive lesion is seen. Status post ACL repair. Th ere is an enthesophyte at the anterior superior patella. JOINTS: There is mild narrowing of the medial femoral tibial joint. Chondrocalcinosis is seen in the medial femoral tibial joint. Osteophytes are seen in the posterior patella and the medial femoral t ibial joint. There is a very small joint effusion. No loose body. SOFT TISSUE: Normal. IMPRESSION: Xbru-hi-sbygmagp degenerative changes in the left knee as described above. DATA REPOSITORY: RADIATION DOSE DELIVERED:
== END 2023-12-14 14:52 | disposition home or self-care (01) ==
LOC: DIORS 14:51
PROVIDERS: PCP Nurse Practitioner Family; Visit Provider Student in an Organized Health Care Education/Training Program
DX: M94.262 Chondromalacia, left knee (principal); M17.12 Unilateral primary osteoarthritis, left knee
CPT/HCPCS: 73562

== ENCOUNTER 2024-01-05 02:45 | Outpatient (CLI) | payer OTHER, SELFPAY ==
--- NOTE | 2024-01-05 06:45 | DI.MRI_ITS ---
Exam(s) MR LOWER JOINT LT WO EXAM: MR LOWER JOINT LT WO CLINICAL HISTORY: PAIN,loose body lt knee, acute meniscus tear,chondromalacia,m94.262,m23.42. TECHNIQUE: Multiplanar multisequence MRI was performed. COMPARISON: MR MR LOWER JOINT LT WO from 06/02/2023 CR XR KNEE LT 3V AP,LAT,PRIYANKA from 12/14/2023 FINDINGS: BONES: There is no fracture or contusion pattern. Screws in distal femur and proximal tibia related to ACL repair. JOINTS: A small joint effusion is present, decreased from prior. Previously noted loose body adjacen t to the lateral femoral condyle is no longer present.. Articular cartilage: Patellofemoral joint: Articular cartilage is unremarkable. Medial femoral tibial joint: Similar defect of cartilage at patellar apex. Lateral femoral tibial joint: Articular cartilage is unremarkable. LIGAMENTS: Anterior Cruciate: Unremarkable. Posterior Cruciate: Unremarkable. Medial Collateral:Unremarkable. Lateral Collateral ligament complex: Unremarkable. TENDONS: Extensor mechanism: Unremarkable. Medial retinaculum: Unremarkable. Lateral retinaculum: Unremarkable. Popliteus: Unremarkable. MENISCI: The medial meniscus shows similar high signal through the posterior horn. The lateral meniscus is unremarkable. MUSCLES: Unremarkable. SOFT TISSUES: Tiny Page's cyst containing loose body. IMPRESSION: Decreased size joint effusion. Previously noted loose body no longer seen. Tiny Page cyst containi ng small loose body remains present. Similar appearance of tear of the posterior horn of the medial meniscus. Intact ACL repair. Similar appearance of cartilage defect at the patellar apex. DATA REPOSITORY:
== END 2024-01-05 03:05 ==
LOC: DI 02:45
PROVIDERS: PCP Nurse Practitioner Family; Visit Provider Student in an Organized Health Care Education/Training Program
DX: M94.262 Chondromalacia, left knee (principal)
CPT/HCPCS: 73721

== ENCOUNTER 2024-01-05 02:45 | Outpatient (CLI) | payer OTHER, SELFPAY ==
--- NOTE | 2024-01-05 07:34 | DI.MAMMO_ITS ---
Exam(s) MAMMO SCREENING EXAM: MAMMO SCREENING CLINICAL HISTORY: screening,z12.39 TECHNIQUE: Mammograms were interpreted according to the usual protocol including computer analysis w [employer] CAD system, tomosynthesis and C-view imaging. COMPARISON: 2018 through 2021 FINDINGS: The breasts are composed of scattered fibroglandular densities, Breast Density category B. No suspicious masses or suspicious microcalcifications are seen. No skin thickening or abnormal axillary lymph nodes are seen. There has been no significant change from prior exams. IMPRESSION: BI-RADS Category 1, Negative mammogram Yearly screening mammography is recommended. Breast Density - Category B, scattered fibroglandular densities. A negative radiographic report should not delay biopsy if a dominant or clinically suspicious mass is present. Up to ten percent of cancers are not identified on mammography. A negative report may reinforce clinical impression. Adenosis and dense breasts may obscure an underlying neoplasm. False positive reports average 6 to 10%. Patient will receive a letter notifying them of these results.
== END 2024-01-05 03:05 ==
LOC: DI 02:45
PROVIDERS: PCP Nurse Practitioner Family; Visit Provider Nurse Practitioner Family
DX: Z12.31 Encounter for screening mammogram for malignant neoplasm of breast (principal)
CPT/HCPCS: 77063; 77067

== ENCOUNTER 2024-02-16 15:49 | Outpatient (CLI) | payer OTHER, SELFPAY ==
--- NOTE | 2024-02-16 14:50 | DI.RAD_ITS ---
Exam(s) XR STANDING ALIGNMENT EXAM: XR STANDING ALIGNMENT CLINICAL HISTORY: TKR Planning. TECHNIQUE: 2D digital imaging was performed. Four images were obtained. COMPARISON: CR XR KNEE LT 3V AP,LAT,PRIYANKA from 12/14/2023 FINDINGS: BONES: The hips are well maintained. The right knee is well maintained. Degenerative changes are se en in the left knee characterized by joint space narrowing and osteophytes. There is a prior ACL rep air in the left knee. The ankles are well maintained.There is no significant leg length discrepancy. SOFT TISSUE: Normal. IMPRESSION: Degenerative and postsurgical changes seen in the left knee as described above. DATA REPOSITORY: RADIATION DOSE DELIVERED:
== END 2024-02-16 15:50 | disposition home or self-care (01) ==
LOC: DIORS 15:50
PROVIDERS: PCP Nurse Practitioner Family; Visit Provider Physician Assistant
DX: M17.32 Unilateral post-traumatic osteoarthritis, left knee (principal)
CPT/HCPCS: 77073

== ENCOUNTER 2024-04-05 03:07 | Outpatient (CLI) | payer OTHER, SELFPAY ==
[2024-04-05 14:49] LABS: HCT 44.9 % (36.0-46.0); HGB 15.4 g/dL (11.2-15.7); MCHC 34.3 % (32.0-36.0); MCV 96 fL (80-95); MPV 9.2 fL (8.0-11.0); Platelet Count 380 10^3/uL (130-400); RBC 4.67 10^6/uL (3.93-5.22); RDW 11.7 % (11.7-14.6); RDW-SD 41.9 fL; WBC 13.56 10^3/uL (4.4-10.8)
[2024-04-05 14:58] LABS: Hemoglobin A1C 5.7 % (<5.7)
[2024-04-05 15:43] LABS: Anion Gap 10.8 mmol/L (3-11); BUN 14 mg/dL (7-18); CO2 23.2 mmol/L (21.0-32.0); CREATININE 0.8 mg/dL (0.55-1.02); Calcium 9.5 mg/dL (8.5-10.1); Chloride 105 mmol/L (98-107); Estimated GFR 92.54 (mL/min/1.73m2); Glucose 106 mg/dL (74-106); Sodium 139 mmol/L (136-145)
== END 2024-04-05 03:08 | disposition home or self-care (01) ==
LOC: LBO 03:07
PROVIDERS: PCP Nurse Practitioner Family; Visit Provider Student in an Organized Health Care Education/Training Program
DX: M17.32 Unilateral post-traumatic osteoarthritis, left knee (principal); Z01.818 Encounter for other preprocedural examination
CPT/HCPCS: 36415; 80048; 85027; 83036

== ENCOUNTER 2024-04-17 08:13 | Day surgery (SDC) | payer OTHER, SELFPAY ==
[2024-04-17] VITALS (25 sets, daily range): BP systolic 118–146; BP diastolic 72–96; PULSE 82–92; RESP 10–28; TEMP 36–37; O2SAT 90–99; BMI 38.6
--- NOTE | 2024-04-17 07:33 | PDOC.DSDIS_ITS ---
Date of service: 04/17/24 Discharge Plan Disposition Patient Disposition: Home Condition: Good Discharge Details Reason For Visit: Left knee DJD Attending Provider: Cuba Velez Primary Care Provider: Curtis Westfall Home Meds and New Rx's Prescriptions: New acetaminophen 500 mg tablet 1,000 mg PO Q8H PRN Qty: 90 0RF Rx Instructions: Take two tablets up to every 8 hours as needed for pain aspirin 81 mg tablet,delayed release (DR/EC) 81 mg PO BID 30 Days Qty: 60 0RF celecoxib [Celebrex] 200 mg capsule 200 mg PO BID PRNQty: 60 0RF Rx Instructions: Take one tablet twice daily for pain and inflammation docusate sodium [Colace] 100 mg capsule 100 mg PO BID Qty: 30 0RF tramadol 50 mg tablet 50 mg PO Q4H MDD 5 tablets PRN (Reason: severe postoperative pain) Qty: 20 0RF Rx Instructions: Take one tablet up to every 4 hours as needed for severe pain pantoprazole 40 mg tablet,delayed release (DR/EC) 40 mg PO DAILY 14 Days Qty: 14 0RF dexamethasone 4 mg tablet 4 mg PO DAILY Qty: 2 0RF Rx Instructions: Take one tablet once daily for two days gabapentin 300 mg capsule 300 mg PO QHS Qty: 14 0RF Rx Instructions: Take one tablet at bedtime Continued simvastatin 20 mg tablet 20 mg PO QHS Qty: 90 3RF latanoprost 0.005 % drops 1 drp ophthalmic (eye) DAILY Discharge Instructions Additional Instructions: Total Knee Discharge Instructions Activity: The most important activity is to walk and to work on gentle motion (both flexion and extension). You should try to take short walks a few times a day. It is important that when resting you work on keeping the knee straight. Avoid putting a pillow behind the knee as this will encourage flexion. Work on range of motion exercises as provided by Physical Therapy. - Start outpatient physical therapy within 2 weeks. - You should wear the NAHEED hose on both legs for 2 weeks. You may remove these at night. You may also use any compression sock in place of the NAHEED hose. - Utilize [employer] to review exercises, see videos on exercises and obtain basic information pertaining to your surgery and your recovery. Dressing: Remove the Trav wrap by 2 days after your surgery and put on the NAHEED stocking given to you from the hospital. Keep the surgical dressing (underneath the TRAV wrap) in place for at least one week. After the first week it may be removed and replaced with light gauze and tape or nothing. The wound and dressing may get wet after 3 days but avoid soaking the dressing or otherwise it will need to be changed. Many people prefer covering the dressing with cling wrap (saran wrap) to minimize it from getting soaked. If it gets wet, just pat dry. If it starts to peel off then it will need to be changed. Medications: - You should take Tylenol and anti-inflammatory Celebrex as your primary pain control medications. If the Celebrex is too expensive or not covered, please call the office for another alternative (Advil/Ibuprofen or Naproxen/Aleve) - You have been prescribed a stronger pain medication Tramadol for breakthrough pain, take as needed as prescribed. - You have also been prescribed a stomach acid reduction agent Pantoprozole to help reduce stomach acid and reflux. - You have been prescribed Gabapentin to take at night for restlessness and nerve pain. - You will be taking Aspirin 81mg twice a day for DVT prevention unless ins tructed otherwise. - You have also been prescribed Decadron to take to control post-operative nausea and pain. You will start this tomorrow. - If you have constipation you should take Colace (which has been prescrbed) or Miralax (which is available [id number]). It takes most people 3-4 days to have a bowel movement. Follow-up: 2 weeks If you have any acute concerns or questions, please do not hesitate to contact the office at [phone]. You may contact Dr. Velez with any questions after hours through the hospital at [phone] or on his cell phone at [phone]. Referrals: Cuba Velez MD [ [facility] STAFF PHYSICIAN] - Equipment/Supplies: Walker Activity:: Activity as Tolerated Remove Dressings/Wound Care:: Do Not Remove Shower/Bathe:: Cover Diet:: As Tolerated Discharge Orders Discharge Orders: Discharge Order (Routine); Ordered 04/17/24 Ordered By: Shahnaz Arguello
[2024-04-17] MEDS: Gabapentin 300 MG CAP PO (09:06)
[2024-04-17] MEDS: Acetaminophen 500 MG TAB 1000 MG PO (09:06)
[2024-04-17] MEDS: Celecoxib 200 MG CAP 400 MG PO (09:06)
[2024-04-17] MEDS: Normal Saline 1,000 ML 30 ML IV (09:19)
--- NOTE | 2024-04-17 10:13 | W.ANESPRE ---
General Info Date of Service Date Performed: 04/17/24 Height: 5 ft 1.5 in Weight: 94.347 kg Body Mass Index (BMI): 38.6 Surgical Procedure: Operation Date: 04/17/24 11:10 Proposed Procedure Side Surgeon p Knee Total Arthroplasty, Cementless CR Left Cuba Velez MD Meds Allergies and Home Medications Allergies Allergy/AdvReac Type Severity Reaction Status Date / Time narcotics AdvReac Other (See Uncoded 04/17/24 08:42 Comment) Home Medication ?Medication ?Instructions ?Recorded simvastatin 20 mg tablet 20 mg PO QHS #90 tabs 09/02/23 latanoprost 0.005 % eye drops 1 drp ophthalmic (eye) DAILY 12/30/23 acetaminophen 500 mg tablet 1,000 mg (2 x 500 mg) PO Q8H PRN 04/17/24 pain #90 tabs aspirin 81 mg tablet,delayed 81 mg PO BID 30 days #60 tabs 04/17/24 release celecoxib 200 mg capsule (Celebrex) 200 mg PO BID PRN #60 caps 04/17/24 dexamethasone 4 mg tablet 4 mg PO DAILY #2 tabs 04/17/24 docusate sodium 100 mg capsule 100 mg PO BID #30 caps 04/17/24 (Colace) gabapentin 300 mg capsule 300 mg PO QHS #14 caps 04/17/24 pantoprazole 40 mg tablet,delayed 40 mg PO DAILY 14 days #14 tabs 04/17/24 release tramadol 50 mg tablet 50 mg PO Q4H PRN severe 04/17/24 postoperative pain #20 tabs Current Visit Medications: Current Medications Generic Name Dose Route Start Last Admin Trade Name Alfred PRN Reason Stop Dose Admin Acetaminophen 1,000 mg 04/17/24 06:00 04/17/24 09:06 Acetaminophen 500 Mg Tab PO 04/17/24 23:59 1,000 mg PREOP GABRIEL Administration Celecoxib 400 mg 04/17/24 06:00 04/17/24 09:06 Celecoxib 200 Mg Cap PO 04/17/24 23:59 400 mg PREOP GABRIEL Administration Gabapentin 300 mg 04/17/24 06:00 04/17/24 09:06 Gabapentin 300 Mg Cap PO 04/17/24 23:59 300 mg PREOP GABRIEL Administration Cefazolin Sodium/Dextrose 2 gm in 50 mls @ 100 mls/hr 04/17/24 06:00 Ancef Duplex IVPB 04/17/24 23:59 PREOP GABRIEL Tranexamic Acid/Sodium Chloride 1,000 mg in 100 mls @ 600 mls/hr 04/17/24 06:00 IVPB 04/17/24 23:59 PREOP GABRIEL Sodium Chloride 1,000 mls @ 30 mls/hr 04/17/24 08:30 04/17/24 09:19 Saline 1000ml Bag IV 05/17/24 08:29 30 mls/hr INFUSION GABRIEL Administration Cefazolin Sodium/Dextrose 1 gm in 50 mls @ 100 mls/hr 04/17/24 16:00 Ancef Duplex IVPB 04/18/24 08:29 Q8H GABRIEL IV Miscellaneous Supplies 1 each 04/17/24 06:00 Iv Access IV 04/17/24 23:59 DIRECTED GABRIEL Sodium Chloride 0 ml 04/17/24 06:00 Normal Saline Flush 10 Ml Syr IV 04/17/24 23:59 PRN PRN Sodium Chloride 0 ml 04/17/24 06:00 Normal Saline 10 Ml Vial IJ 04/17/24 23:59 DIRECTED PRN Sterile Water 0 ml 04/17/24 06:00 Water,Injection,Sterile 10 Ml Vial IJ 04/17/24 23:59 DIRECTED PRN Tramadol HCl 50 mg 04/17/24 07:32 Tramadol 50 Mg Tab PO 05/17/24 07:31 Q4H PRN PRN Pain PFSH Active Problems Active Problems: Problem Status Onset Code History of total left knee replacement Acute Z96.652 Loose body of left knee Acute M23.42 Acute medial meniscus tear of left knee Acute S83.242A Chondromalacia, left knee Acute M94.262 Diarrhea Acute R19.7 Labial cyst Acute N90.7 White coat syndrome without diagnosis of hypertension Acute R03.0 Hyperlipidemia Acute E78.5 Hypoglycemic reaction Acute E16.1 Elevated WBC count Acute D72.829 Increased body mass index (BMI) Acute R63.8 Lumbar disc prolapse with compression radiculopathy Acute 03/13/13 M51.16 Smoker Acute 12/12/17 F17.200 Medical History Medical History (Updated 04/17/24 @ 08:30 by Markos Rosenthal RN) Elevated BP without diagnosis of hypertension External hemorrhoid (12/12/17) Heat syncope (05/01/12) Medical History Comments:: pt. states her sister woke up from anesthesia. Surgical History Surgical History (Updated 04/17/24 @ 08:30 by Markos Rosenthal RN) History of tubal ligation History of knee surgery Status post foot surgery Knee surgeries 8051-5531 Foot surgeries 2000 Tobacco Smoking/Tobacco Use Status: Current every day Tobacco Type: cigarettes Smokeless tobacco user: other Passive smoking exposure: Yes Second hand exposure: Yes Alcohol Alcohol Intake: current Alcohol intake frequency: a few times a month Alcohol type: beer Substance Use Substance use: Never Substance use type: does not use Prental History History 0 Para Hx # Term Pregnancies Multiple births Hx # Pregnancies Ectopic pregnancies AB induced Hx Number of Living Children AB spontaneous Vital Signs and Lab Results Vital Signs Most Recent Vital Signs in EMR: Most Recent Vital Signs Temp Pulse Resp BP Pulse Ox 37 C 82 10 L 118/78 97 04/17/24 09:40 04/17/24 09:40 04/17/24 09:40 04/17/24 09:40 04/17/24 09:40 Point of Care Results Point of Care Results: POC- Test(urine) Negative 04/17/24 08:51 Lab Results Blood Type / Crossmatch: No Data to Display Complete Blood Count: White Blood Count 13.56 10^3/uL (4.4-10.8) H 04/05/24 14:44 Red Blood Count 4.67 10^6/uL (3.93-5.22) 04/05/24 14:44 Hemoglobin 15.4 g/dL (11.2-15.7) 04/05/24 14:44 Hematocrit 44.9 % (36.0-46.0) 04/05/24 14:44 Platelet Count 380 10^3/uL (130-400) 04/05/24 14:44 Complete Metabolic Panel: Sodium 139 mmol/L (136-145) 04/05/24 14:44 Potassium 4.0 mmol/L (3.5-5.1) 04/05/24 14:44 Chloride 105 mmol/L (98-107) 04/05/24 14:44 Carbon Dioxide 23.2 mmol/L (21.0-32.0) 04/05/24 14:44 BUN 14 mg/dL (7-18) 04/05/24 14:44 Creatinine 0.8 mg/dL (0.55-1.02) 04/05/24 14:44 Est GFR (CKD-EPI 2020) 92.54 (mL/min/1.73m2) 04/05/24 14:44 Calcium 9.5 mg/dL (8.5-10.1) 04/05/24 14:44 Glucose 106 mg/dL (74-106) 04/05/24 14:44 Hemoglobin A1c 5.7 % (<5.7) 04/05/24 14:44 Liver Function Panel: No Data to Display Coagulation Panel: No Data to Display Cardiac Panel: No Data to Display Arterial Blood Gas: No Data to Display Venous Blood Gas: No Data to Display Pancreas Panel: No Data to Display Thyroid Panel: No Data to Display Infectious Disease: No Data to Display Blood Cultures: No Data to Display Toxicology Panel: No Data to Display Panel: No Data to Display Anesthesia Assessment and Plan Anesthesia History Personal History: No History of Anesthesia Complications Family History: Other Exercise Tolerance Exercise Tolerance: Metabolic Equivalents>4 Pertinent Negatives Pertinent Negatives: No Symptoms of GERD, No Major Cardiovascular Symptoms or Complaints and No History of CVA/TIA Cardiac & Pulmonary Exam Cardiac Exam: Normal S1/S2 Heart Sounds Pulmonary Exam: Clear Bilateral Breath Sounds Implantable Cardiac Device Does patient have a Pacemaker or an ICD?: No Airway Exam Known Difficult Airway: No Mallampati Class: 2 Mouth Opening: Normal (> 3cm) Thyromental Distance: Greater than 3 cm Neck Range of Motion: Full ROM Neck Circumference: Thick Teeth Condition: Normal Dentition ASA Classification ASA Score: ASA 2 Emergency Case?: No NPO Status NPO Status: NPO Clears >2 hours, Solids >8 hours Status Status: Negative HCG Anesthesia Plan Resuscitation Status: Full Code Anesthesia Technique: General Anesthesia Airway Planned: Endotracheal Tube Pain Management: Surgeon and patient request nerve block Monitors Used: Standard Monitors and SedLine
--- NOTE | 2024-04-17 10:18 | W.ANESNERVE ---
Nerve Block Single Injection Procedure Date and Time Date Performed: 04/17/24 Procedure Start: 09:48 Location Where Procedure Performed Procedure Location: Day Surgery Unit Reason Performed: Postoperative Analgesia Requesting Provider: Cuba Velez Timeout Performed Timeout Performed: Yes Monitoring Used ECG, Blood Pressure and SpO2 Sterility Sterility: Hand Hygiene, Surgical Cap, Surgical Mask, Sterile Gloves and Chlorhexidine Sedation Given During Procedure Sedation Given (Indicate Dose Given): Versed IV Dose:: 2 mg Patient Mental Status Patient Mental Status: Sedate with meaningful communication Nerve Block 1st Nerve Block: Laterality: Left Block Type: Adductor Canal Ultrasound Image Saved?: Yes Needle / Catheter Used: 100mm SonoPlex II Local Anesthetic Bolus (Indicate Dose Given): Lidocaine used for local infiltration of skin, Injected in 3-5ml increments after negative blood aspiration and Bupivacaine 0.25% Dose:: 10 mL Additives (Indicate Dose Given): None Ultrasound: Sterile probe cover and gel used Nerve Stimulator: Supplement to Ultrasound use and No twitch or parasthesia noted < 0.5 mA Paresthesia: None Procedure Tolerated: No Complications and Patient tolerated well Procedure Outcome: Successful Performed By: Isma Nicholas Supervised By: Favio Marr
[2024-04-17] MEDS: ceFAZolin 2 GM/50 ML BAG IVPB (10:28)
[2024-04-17] MEDS: TRANEXAMIC ACID/SOD. CHL. 1,000 MG/100 ML BAG 600 MG IVPB (10:35)
[2024-04-17] MEDS: HYDROmorphone 1 MG/ML SYR IVP (12:55)
--- NOTE | 2024-04-17 13:09 | W.PM.OP ---
Operative Note Operative Note PRE-OP DIAGNOSIS: Post-Traumatic Knee Osteoarthritis POST-OP DIAGNOSIS: same PROCEDURE: Left Total Knee Replacement with Hardware Removal SURGEON: Cuba Velez TANK BUILDER HELPER: Shahnaz Arguello ANESTHESIA TYPE: Spinal Refer to Anesthesia Record ESTIMATED BLOOD LOSS: 100 PATHOLOGY: none sent TOURNIQUET TIME: 0 COMPLICATIONS: None Patient was transported to: PACU Patient's condition: stable Implants: 1. Depuy Attune Cementless Cruciate Retaining Femoral Component, Size 4 2. Depuy Attune Cementless Fixed Bearing Tibial Component, Size 4 3. Depuy Attune 4x5mm CR/FB Poly 4. Depuy Attune Patellar Component, Size 35 Indications: I have seen Kati in clinic for symptoms of post-traumatic knee arthritis, confirmed with radiographic and arthroscopic findings. She has exhausted nonoperative methods and was having significant limitations in daily function and desired better function and less pain. I discussed the technical details of a knee replacement. I explained the risks of the procedure to include, but not limited to, bleeding, infection, pain, stiffness, fracture, damage to nerves and vessels, damage to muscles and tendons, loosening, need for repeat procedure, blood clot and cardiopulmonary demise. Despite these risks, Kati elected to proceed. Findings: There was significant signs of arthritis throughout the knee, mostly of the medial compartment as well as the patellofemoral space. The interference screw in the proximal tibia had to be removed from the distal aspect the incision. A post, cortical screw, and the slightly more distal proximal tibia had to be removed through extension of the incision and with additional dissection. Procedure Description: Kati was greeted in the preoperative holding area where the correct side was identified and marked. The consent was reviewed with the patient and signed. The history and physical was updated. All questions were answered. Preoperative medications were administered: Acetaminophen 1000mg, Celebrex 400mg, and Gabapentin 300mg. An adductor canal block was then administered by the anesthesia team in the DSU. She was taken back to the operating room. A general anesthetic was then administered. The patient was placed into the supine position on the operating room table. Posts were placed for positioning during the procedure. All bony prominences were well padded. Prophylactic antibiotics in the form of Cefazolin were administered. 1g of Tranxemic Acid was given intravenously within 30 minutes of incision. The left leg was then prepped with Chloraprep and draped in a standard fashion with impervious stockinette. A second prep with Chloraprep was performed prior to application of Iodine impregnated skin protection. A timeout to confirm correct identity, side and site, procedure, allergies, anesthesia, and medical concerns was performed. With the knee in some flexion, a midline incision was made overlying the knee. The previous scar was excised its entire length. Full thickness skin flaps were raised once the extensor mechanism was encountered. These were raised medially and laterally. Any bleeding was controlled with electrocautery. Once the extensor mechanism was fully exposed, a medial parapatellar arthrotomy was performed in a flexed position. All bleeding from the arthrotomy and the geniculate arteries was coagulated. A medial subperiosteal peel was performed with electrocautery to the midcoronal plane. Due to the significant varus deformity the entire medial tibial plateau was exposed. The fat pad was removed while keeping the patellar tendon protected. The anterior distal femur synovium was removed for later visualization. The ACL and PCL were resected and the anterior horn of the lateral meniscus was transected. The knee was then flexed with the patella everted. Using a step drill, and based on preoperative templating, the femoral canal was entered. This was done with a step drill without any difficulty. The intramedullary distal femoral cut guide was inserted, set to a 4 degree valgus cut and 9mm cut thickness. The distal femoral cut guide was then held in position and pinned. With the soft tissues protected, the distal cut was performed. This was passed over a few times to ensure a planar cut. I then turned attention to the tibia. The extramedullary guide was placed onto the leg. The distal aspect was slid medial to adjust for position of center of ankle and stay in line with shaft of the tibia. Approximately 3-5 degrees of posterior slope was kept in the proximal cutting guide. The center of the guide was aligned with the PCL. The stylus was used to assess cut thickness. The medial side, most involved side, was set for a 6mm cut. This was then held in position and pinned into place with 2 additional pins and a cross pin for stability. The medial and lateral collateral ligaments were protected and the cut was performed. The screw was encountered. The cut was made around the screw. The osteotomy was opened with an osteotome. The cut piece of tibia with this completed was assessed and noted to be of appropriate dimensions. I then extended the subperiosteal peel of the medial tibia to expose the head of the interference screw proximally. Using a screw moved system I then remove the metal interference screw without difficulty. The guide was replaced and the cut of the tibia was performed once again. A spacer block was inserted and the knee was brought into extension. The 5mm spacer block provided full extension, without hyperextension and with stability of both the medial and lateral collateral ligaments was assessed. The pins from the femur and the tibia were then removed. The distal femur was then sized. The anterior stylus was placed onto the lateral ridge of the anterior femur. This indicated a size 4 femur. The external rotation of the guide was adjusted to 3 degrees to match the epicondylar axis, perpendicular to Sumner?s line. The 4-in-1 cutting guide was the placed. The posterior medial femur cut was evaluated and appeared of good thickness. The spacer block was inserted underneath the cutting guide and stability was confirmed in 90 degrees of flexion. An katarina wing was used to confirm appropriate position of the anterior cut to avoid notching. This cutting guide was ensured to be flush on the cut surface and then pinned into place with headed pins. While protecting the soft tissues, quad tendon, and collateral ligaments, the anterior and posterior cuts were performed with a saw. The central two pins were removed and the posterior and anterior chamfers were cut next. The notch-cutting guide was placed. This was pinned to lateralize the femoral component as much as possible while keeping it flush on the cut surface. This was then pinned into position. A reciprocating saw was used to make the notch cut. A rasp smoothed the cut surfaces. The medial and lateral menisci were removed. A trial femoral component was then inserted, impacted down to the cut surfaces, and the lug holes were drilled. A provisional trial tibial component was placed and the knee was brought through range of motion. There was noted to be excellent extension and flexion. There was no significant instability. A size 5mm polyethylene component provided the best range of motion and stability with less than 2mm gapping with medial and lateral stress and full extension without significant hyperextension. The tibial cut surface was fully exposed. The tibia was then sized as a 4. The tibia had been previously marked during trialing to correspond to the center of the tibial component to help with rotation. The trial was aligned to this dameon, approximately rotated to the medial 1/3rd of the tibial tubercle. The trial was pinned into place. The tibia was prepared with a reamer and a keel punch and lug holes. The slightly more distal screw post was then encountered during this process. The incision was extended distally and dissected over to the medial tibia. This grade was identified and the periosteum was elevated to expose the screw head. Once again, utilizing the screw movable system I was able to remove the screw without difficulty. The reaming and punch process was completed. The knee was then brought into extension and the patella was measured as 25mm. Using the patellar clamp and cut guide, this was resected to a flat surface with at least 13mm of thickness remaining. The size 35 patella fit the best. This was oriented and then clamped into position. The lugs were drilled. The trial components were removed. The final components were opened on the back table. The periosteal and capsular tissues, especially posteriorly, around the knee were then systematically injected with a periarticular cocktail consisting of 246mg of Ropivacaine, 0.5mg of Epinephrine, 0.08mg of Clonidine, and 30mg of Ketorolac, diluted to 100cc. On the back table, with the implants opened, the cement was mixed. One batch of high viscosity cement was prepared with vacuum assistance. After the cement was ready a small amount was placed on the cut surface of the patella and the patellar button was clamped into position and held. While the cement was hardening, the cementless knee components were placed. Starting with the tibial component, the tibia was subluxed anteriorly and the lug holes of the component were lined up. The tibia was then impacted with an impactor and mallet until the tibial component was in contact with the tibia. The final polyethylene component was inserted. Then, the femoral component was inserted. The lug holes were aligned and the component was impacted into position. The knee was irrigated with Surgiphor Betadine solution. This was allowed to sit in the knee for 3 minutes and then it was irrigated out with saline. After the cement had finally cured, approximately 15min, the clamp was removed from the patella and the knee was taken through range of motion. The patella was tracking with a no-thumbs technique. The capsule was then reapproximated with a No. 1 Vicryl at multiple locations. The capsule was finally closed with a No. 2 Stratafix, barbed suture. The second dosing of 1g TXA was started. Deep tissues were then reapproximated with 0 Vicryl and 2-0 Vicryl. The skin was closed with a running 3-0 Monocryl in a subcuticular fashion. This was reinforced with skin glue. A Mepilex silver dressing was applied along with a [id number] RUBA wrap. A CryoCuff was applied. Kati was transferred to the hospital bed without difficulty an suffering no apparent complication. She has a good prognosis. Physical therapy will start today and without restrictions, weight-bearing as tolerated. Aspirin 81mg BID will be used for DVT prophylaxis. Date of Procedure: 04/17/24
--- NOTE | 2024-04-17 15:20 | W.ANESPOSTOP ---
Postoperative Evaluation Date, Time and Location Date Performed: 04/17/24 Time Performed: 15:20 Patient Location: Day Surgery Unit Vital Signs Most Recent Imported Vital Signs: Most Recent Vital Signs Temp Pulse Resp BP Pulse Ox 36.2 C L 90 20 144/81 H 97 04/17/24 13:54 04/17/24 13:54 04/17/24 13:54 04/17/24 13:54 04/17/24 13:54 Pain Score Most Recent Pain Score: Most Recent Pain Score Pain Level 5 04/17/24 13:26 Assessment Mental Status: Awake (Alert & Oriented to Patient Baseline) Airway and Respiratory Function: Patent airway with normal (patient baseline) respiratory exam Cardiovascular Function: Hemodynamically Stable Hydration Status: Adequately Hydrated Nausea & Vomiting: No Nausea or Vomiting Pain: Pain is tolerable per patient Peripheral Nerve Block: Regional nerve block not resolved at time of post operative discharge
--- NOTE | 2024-04-17 15:33 | PT.INIE ---
PT Notes Visit Reasons: Left knee DJD Physical Therapy Day Surgery Initial Evaluation Date: 04/17/2024 Referring Doctor: Dr Velez PT Orders: PT CONSULT: Status post Ortho surgery Precautions: WBAT left LE, TEDs x 2 weeks Patient Profile/Admitting Diagnosis: Patient is a 43-year-old female presenting status post elective left TKA with adductor block only. Patient declined anesthesia. PMHX: Elevated BPs without diagnosis of HTN, HLD, lumbar disc prolapse with compression radiculopathy, status post left ACL reconstruction 1993, left partial meniscectomy, foot surgery 2000,(+) tobacco Social History/Home Situation: Patient resides at home with one-step to enter home without railing. Patient has flight of stairs to second floor bedroom however only bathroom is on first floor so she will remain on the first floor. She reports her stairs are very narrow and steep as [place]. 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 Patient has 1 large dog. Equipment Owned/DME: Axillary crutches Subjective: Patient reporting she does not take pain medication as she had a bad experience in the past. Objective: General Observation: Patient presented semireclined on stretcher with Cryo/Cuff to left knee IV access right upper extremity Mental Status: Alert and oriented x 4, eager to participate in PT evaluation to return home Pain: Left knee patient reported pain however declined to utilize pain scale ROM: Right Upper Extremity: WNL Left Upper Extremity: WNL Left lower Extremity: WNL except knee 0-86 degrees (patient declined to take pain medication postop) Right lower Extremity: WNL Strength: Right Upper Extremity: 5/5 Left Upper Extremity: 5/5 Left lower Extremity:Hip flexion: 2+/5; hip abduction: 3 -/5; hip extension: 3 -/5; knee extension: 3 -/5; knee flexion: 2/5 ankle DF: 3/5 ; ankle PF: 3/5; patient demonstrates quad set able to hold for 5 seconds, straight leg raise in shortened range with slight lag Right lower Extremity: 5/5 Sensation: Intact Bed Mobility/Transfers: Supine to sit independent Sit to stand independent Stand to sit independent Bed to chair independent with axillary crutches Gait: Ambulated 200 feet on level surfaces with turns with axillary crutches standby assist 2 point gait pattern demonstrating the following deviations: Decreased step length, decreased knee flexion left during swing phase, vaulting left lower extremity, impaired heel strike, early heel off Stairs: 3 steps with bilateral crutches SBA cues for sequencing. Balance: Static Sitting: Normal Dynamic Sitting: Good Static Standing: Good Dynamic Standing: Fair plus Special Tests: Mobility Limitations Standardized Measure [facility] AM-PAC 6 clicks Basic Mobility Inpatient Short Form: Raw Score: 23 CMS Score: 11.20% Informed Consent/Education: Patient instructed in purpose of PT consult. Packet containing TKA exercise protocol has been given to patient. Education and training on initial set of exercises that can be done at home have been completed with patient. Assessment: Patient presents with clinical signs and symptoms consistent with current/admitting diagnoses that have resulted to mobility limitations, gait instability, generalized weakness, and impairment of motor control as demonstrated by the following impairment level findings: 1. Decreased strength to left knee major muscle groups 2. Impaired standing balance 3. Limitation of joint range of motion in left knee 4. Impaired functional activity tolerance in standing Impairments are contributing to the following functional limitations: 1. Inability to safely ambulate without assistive device 2. Increase completion time for mobility ADL performance 3. Increased fall risk 4. Decline in ability to perform stairs safely independently Patient is assessed as a low complexity based on the following: History: 43-year-old female with impairment level findings, functional limitations, and past medical history as indicated above Examination: Demonstrable impairment in strength, balance, and mobility level with underlying impairments and functional limitations as documented above Presentation: Stable Decision Making: Low Goals: N/A. Plan of Care/Treatment Plan: N/A. DISCHARGE RECOMMENDATIONS: Home with outpatient PT as scheduled TREATMENT CODE/TIME: 49500, [id number] Thank you for the opportunity to participate in the care of this patient. Josefa Meyer PT [facility] Please sign an return this page within 30 days if you agree with the above POC. Thank you! Physician Signature Date [facility]
== END 2024-04-17 15:10 | disposition home or self-care (01) ==
LOC: SUR 08:14
PROVIDERS: PCP Nurse Practitioner Family; Visit Provider Student in an Organized Health Care Education/Training Program
PROC: (CPT 27447; principal; 2024-04-17 11:00)
DX: M17.32 Unilateral post-traumatic osteoarthritis, left knee (principal); G89.18 Other acute postprocedural pain; M25.562 Pain in left knee
CPT/HCPCS: 27447; 64447; 97162; 97530; C1776; J0665; J0690; J1100; J1171; J2250; J2371; J2401; J2405; J2704; J3010; J3475

== ENCOUNTER 2024-04-30 15:10 | Outpatient (CLI) | payer OTHER, SELFPAY ==
--- NOTE | 2024-04-30 08:00 | DI.RAD_ITS ---
Exam(s) XR KNEE LT 1V XR STANDING ALIGNMENT EXAM: XR STANDING ALIGNMENT and XR knee LT 1 V CLINICAL HISTORY: 1ST POST OP S/P L TKA. TECHNIQUE: 2D digital imaging was performed. Five images were obtained. COMPARISON: CR XR hip RT complete AP pelvis from 06/22/2018 CR XR KNEE LT 3V AP,LAT,PRIYANKA from 02/16/2023 CR XR KNEE LT 3V AP,LAT,PRIYANKA from 12/14/2023 CR XR STANDING ALIGNMENT from 02/16/2024 FINDINGS: BONES: The hips are well maintained. Since the prior examination, the patient has undergone a left t otal knee arthroplasty. The orthopedic hardware appears in good position. No suspicious lucencies a re seen around the hardware. There are findings of a prior ACL repair in the left knee. There is so ft tissue swelling around the left knee consistent with recent surgery. No soft tissue gas is presen t. The right knee is well maintained. The ankles are well maintained.There is no significant leg le ngth discrepancy. SOFT TISSUE: Normal. IMPRESSION: Interval placement of a left total knee arthroplasty. Unremarkable right knee. DATA REPOSITORY: RADIATION DOSE DELIVERED:
== END 2024-04-30 15:11 | disposition home or self-care (01) ==
LOC: DIORS 15:12
PROVIDERS: PCP Nurse Practitioner Family; Visit Provider Student in an Organized Health Care Education/Training Program
DX: Z96.652 Presence of left artificial knee joint (principal); Z47.1 Aftercare following joint replacement surgery
CPT/HCPCS: 73560; 77073

== ENCOUNTER 2024-07-18 16:04 | Outpatient (CLI) | payer OTHER, SELFPAY ==
--- NOTE | 2024-07-18 14:15 | DI.RAD_ITS ---
Exam(s) XR KNEE LT 3V AP,LAT,PRIYANKA EXAM: XR KNEE LT 3V AP,LAT,PRIYANKA CLINICAL HISTORY: F/U LEFT TKA. TECHNIQUE: 2D digital imaging was performed. Three views. COMPARISON: CR XR STANDING ALIGNMENT from 04/30/2024 CR XR KNEE LT 1V from 04/30/2024 FINDINGS: BONES: No acute fracture is present. No bony destructive lesion is seen. JOINTS: The knee prosthesis is normally aligned. No joint effusion is seen. SOFT TISSUE: Mild anterior soft tissue swelling. IMPRESSION: Stable appearance of left total knee prosthesis. DATA REPOSITORY: RADIATION DOSE DELIVERED:
== END 2024-07-18 16:05 | disposition home or self-care (01) ==
LOC: DIORS 16:04
PROVIDERS: PCP Nurse Practitioner Family; Visit Provider Physician Assistant
DX: Z96.652 Presence of left artificial knee joint (principal); Z47.1 Aftercare following joint replacement surgery
CPT/HCPCS: 73562

== ENCOUNTER 2024-11-30 06:39 | Day surgery (SDC) | payer OTHER, SELFPAY ==
--- NOTE | 2024-11-29 17:01 | W.PM.DSUDISC ---
Date of service: 11/30/24 Discharge Plan Disposition Patient Disposition: Home Condition: Good Discharge Details Reason For Visit: screening colonoscopy Attending Provider: Huey Rosenthal Primary Care Provider: Curtis Westfall Home Meds and New Rx's Prescriptions: Continued ketoconazole 2 % cream 1 applic topical DAILY Qty: 120 6RF Rx Instructions: Apply to toenails once daily simvastatin 20 mg tablet 20 mg PO QHS Qty: 90 3RF Discontinued bisacodyl [Dulcolax (bisacodyl)] 5 mg tablet,delayed release (DR/EC) 5 mg PO ONCE Qty: 4 0RF Rx Instructions: Take per colonoscopy instructions provided by ordering providers office polyethylene glycol 3350 17 gram/dose powder 17 g PO ONCE Qty: 238 0RF Rx Instructions: Take per colonoscopy instructions provided by ordering providers office Discharge Instructions Instructions: Colon polyps Additional Instructions: Kati, it was a pleasure meeting you today, and I hope you feel well after the procedure. Things went very smoothly. I did find, and removed, 1 small polyp today. There are no worrisome features to the naked eye, but I will send this off to the pathologist for them to review. Polyps do come in different varieties, and we use that information to help guide the timing of future colonoscopies. Those results will take a week or so to get back. If you need anything or have any questions, please do not hesitate to ask, otherwise my office will be in touch once those results are available. 1. If tolerated, consume a soft, low fiber diet for 1-2 days. 2[address] Do not drive, drink alcohol, operate machinery, make critical decisions, or do activities that require coordination or balance for 24 hours. 3. Because air was put into your colon during the procedure, expelling air from your rectum (passing gas or farting) is normal. 4. You may not have a bowel movement for 1-3 days because of the colonoscopy prep. This is normal. 5. Go directly to the emergency room if you notice any of the following: Develop chills (warm to touch), or if you have a thermometer and your temperature is above 101 Difficulty breathing or difficultly swallowing Persistent vomiting Severe abdominal pain, other than gas cramps Severe chest pain Black, tarry stools Any bleeding ? exceeding one tablespoon 6. Call your physician if the site where your intravenous was started becomes red, swollen, painful, and warm to touch. 7. Your physician has reviewed your pre-procedure medications. Please continue to take those medications as previously ordered. You will be given specific information/education regarding any changes to your medications before leaving. Activity:: Activity as Tolerated Diet:: As Tolerated Discharge Orders Discharge Orders: Discharge Order (Routine); Ordered 11/29/24 Ordered By: Huey Rosenthal DS: Diagnosis Discharge Diagnosis (1) Encounter for screening colonoscopy: Status: Acute Asessment and Plan: Follow-up on polypectomy results
--- NOTE | 2024-11-29 17:03 | W.COLOREPORT ---
Date of service: 11/30/24 Time of Service: 08:37 Colonoscopy Report Date of procedure: 11/30/24 Pre-op diagnosis general: screening colonoscopy Post-op diagnosis procedure note: other (Rectal polyp) Procedure: colonoscopy with polypectomy Surgeon: Huey Rosenthal Anesthesia Type: General:No Airway Estimated blood loss (mL): 5 Pathology: other (0.25 cm flat rectal polyp) Complications: None Disposition: same day Indications: Kati is a 43 year old woman who needs a screening colonoscopy Prep: Miralax/Dulcolax Procedure Start Time: 08:17 Procedure End Time: 08:31 Retraction Time: 8 Findings: 0.25 cm flat rectal polyp Procedure Description: After the induction of anesthesia, and with the patient in left lateral decubitus position, I began by performing an external anorectal exam.? Perineum and skin were normal, as was the anal verge.? Next, I performed a digital rectal exam.? I did not appreciate any abnormal findings.? Next, I advanced a colonoscope into the rectal vault.? I performed retroflexion.? This appeared normal.? Using insufflation, I then advanced the colonoscope beyond the rectal folds and into the sigmoid colon before advancing towards the cecum.? The quality of the prep was excellent.? The scope was noted to be in the cecum by identification of the ileocecal valve and appendiceal orifice.? I then began withdrawing the colonoscope using repeated irrigation as necessary for full evaluation of the colonic mucosa. ?Once the scope was withdrawn to the level of the rectum, great care was taken to examine portions of the rectal folds.? In the midportion of the rectal vault was a 0.25 cm flat polyp. This was removed with cold forceps with minimal bleeding. Finally, the scope was withdrawn and the patient was brought to the same-day surgery recovery unit as the anesthetic wore off. ?The findings and instructions were shared with the patient prior to discharge. [place] Bowel Prep [place] Bowel Prep Right Colon: 3 Left Colon: 3 Transverse Colon: 3 Total Score: 9
[2024-11-30 06:45] VITALS: BP 120/84; PULSE 86; RESP 16; TEMP 36; O2SAT 95
[2024-11-30] MEDS: Lactated Ringers 1,000 ML 80 ML IV (07:15)
--- NOTE | 2024-11-30 08:07 | W.ANESPRE ---
General Info Date of Service Date Performed: 11/30/24 Height: 5 ft 1.5 in Weight: 88.4 kg Body Mass Index (BMI): 36.2 Surgical Procedure: Operation Date: 11/30/24 08:20 Proposed Procedure Side Surgeon p Colonoscopy Huey Rosenthal MD Meds Allergies and Home Medications Allergies Allergy/AdvReac Type Severity Reaction Status Date / Time narcotics AdvReac Other (See Uncoded 11/30/24 07:00 Comment) Home Medication ?Medication ?Instructions ?Recorded simvastatin 20 mg tablet 20 mg PO QHS #90 tabs 08/28/24 ketoconazole 2 % topical cream 1 applic topical DAILY #120 grams 09/26/24 Current Visit Medications: Current Medications Generic Name Dose Route Start Last Admin Trade Name Freq PRN Reason Stop Dose Admin Ringer's Solution 1,000 mls @ 80 mls/hr 11/30/24 06:00 11/30/24 07:15 IV 11/30/24 23:59 80 mls/hr INFUSION GABRIEL Administration IV Miscellaneous Supplies 1 each 11/30/24 06:00 Iv Access IV 11/30/24 23:59 DIRECTED GABRIEL Ondansetron HCl 4 mg 11/29/24 17:04 Ondansetron 4 Mg/2 Ml Vial IVP 12/29/24 17:03 Q4H PRN PRN Nausea / Vomiting Sodium Chloride 0 ml 11/30/24 06:00 Normal Saline Flush 10 Ml Syr IV 11/30/24 23:59 PRN PRN Sodium Chloride 0 ml 11/30/24 06:00 Normal Saline 10 Ml Vial IJ 11/30/24 23:59 DIRECTED PRN Sterile Water 0 ml 11/30/24 06:00 Water,Injection,Sterile 10 Ml Vial IJ 11/30/24 23:59 DIRECTED PRN PFSH Active Problems Active Problems: Problem Status Onset Code Encounter for screening colonoscopy Acute Z12.11 Onychomycosis Acute B35.1 Tinea pedis Acute B35.3 Pain in left foot Acute M79.672 Ingrown toenail Acute L60.0 Contusion of left knee Acute S80.02XA Diarrhea Acute R19.7 Labial cyst Acute N90.7 White coat syndrome without diagnosis of hypertension Acute R03.0 Hyperlipidemia Acute E78.5 Hypoglycemic reaction Acute E16.1 Elevated WBC count Acute D72.829 Increased body mass index (BMI) Acute R63.8 Lumbar disc prolapse with compression radiculopathy Acute 03/13/13 M51.16 Smoker Acute 12/12/17 F17.200 Medical History Medical History Elevated BP without diagnosis of hypertension External hemorrhoid (12/12/17) Heat syncope (05/01/12) Medical History Comments:: pt. states her sister woke up from anesthesia. Surgical History Surgical History History of total left knee replacement (04/17/24) History of tubal ligation History of knee surgery Status post foot surgery Knee surgeries [id number] Foot surgeries 2000 Tobacco Smoking/Tobacco Use Status: Current every day Tobacco Type: cigarettes Smoking cigarettes per day: 20 Smokeless tobacco user: other Passive smoking exposure: Yes Second hand exposure: Yes Alcohol Alcohol Intake: current Alcohol intake frequency: a few times a month Alcohol type: beer Substance Use Substance use: Never Substance use type: does not use Prental History History 0 Para Hx # Term Pregnancies Multiple births Hx # Pregnancies Ectopic pregnancies AB induced Hx Number of Living Children AB spontaneous Vital Signs and Lab Results Vital Signs Most Recent Vital Signs in EMR: Most Recent Vital Signs Temp Pulse Resp BP Pulse Ox 36 C L 86 16 120/84 95 11/30/24 06:45 11/30/24 06:45 11/30/24 06:45 11/30/24 06:45 11/30/24 06:45 Point of Care Results Point of Care Results: POC- Test(urine) Negative 11/30/24 07:31 Anesthesia Assessment and Plan Anesthesia History Personal History: No History of Anesthesia Complications Family History: No Family History of Anesthesia Complications and Other Exercise Tolerance Exercise Tolerance: Metabolic Equivalents>4 Pertinent Negatives Pertinent Negatives: No Symptoms of GERD Cardiac & Pulmonary Exam Cardiac Exam: Normal S1/S2 Heart Sounds Pulmonary Exam: Clear Bilateral Breath Sounds Implantable Cardiac Device Does patient have a Pacemaker or an ICD?: No Airway Exam Known Difficult Airway: No Mallampati Class: 2 Mouth Opening: Normal (> 3cm) Thyromental Distance: Greater than 3 cm Neck Range of Motion: Full ROM Neck Circumference: Thick Teeth Condition: Normal Dentition ASA Classification ASA Score: ASA 2 Emergency Case?: No NPO Status NPO Status: NPO Clears >2 hours, Solids >8 hours Status Status: Negative HCG Anesthesia Plan Resuscitation Status: Full Code Anesthesia Technique: General Anesthesia Airway Planned: Natural Airway Monitors Used: Standard Monitors
[2024-11-30 08:08] VITALS: BMI 36.2
--- NOTE | 2024-11-30 08:29 | BOWEL_PTH ---
PATIENT: Kati Zamarripa LOC: [facility] U#:[id number] AGE/SX: 43/F ROOM: RE11/30/[address]: Huey Rosenthal MD : 1980 BED: DIS: 11/30/2024 SPEC #: [id number] RECD: 11/30/24 10:12 STATUS: CHRISTY REQ #: [id number] BRIAN: 11/30/24 08:[address]: Huey Rosenthal DEPT: Surgical Specimen RECD BY: Debra Palacios ENTERED: 11/30/24 10:12 SP TYPE: Bowel OTHR DR: Curtis Westfall, RANDY Tissues: 1 - BIOPSY BOWEL Procedures: GROSS AND MICRO LEVEL 4 Comments: [id number]
[2024-11-30 08:35] VITALS: BP 113/82; PULSE 86; RESP 16; TEMP 36.2; O2SAT 99
--- NOTE | 2024-11-30 08:43 | W.ANESPOSTOP ---
Postoperative Evaluation Date, Time and Location Date Performed: 11/30/24 Time Performed: 08:43 Patient Location: Day Surgery Unit Vital Signs Most Recent Imported Vital Signs: Most Recent Vital Signs Temp Pulse Resp BP Pulse Ox 36 C L 86 16 120/84 95 11/30/24 06:45 11/30/24 06:45 11/30/24 06:45 11/30/24 06:45 11/30/24 06:45 Pain Score Most Recent Pain Score: Most Recent Pain Score Pain Level 0 11/30/24 06:45 Assessment Mental Status: Awake (Alert & Oriented to Patient Baseline) Airway and Respiratory Function: Patent airway with normal (patient baseline) respiratory exam Cardiovascular Function: Hemodynamically Stable Hydration Status: Adequately Hydrated Nausea & Vomiting: No Nausea or Vomiting Pain: Pt. Denies Any Pain Peripheral Nerve Block: Patient did not receive a nerve block
[2024-11-30 09:00] VITALS: BP 122/82; PULSE 74; RESP 17; TEMP 36.3; O2SAT 98
== END 2024-11-30 09:10 | disposition home or self-care (01) ==
LOC: SUR 06:40
PROVIDERS: PCP Nurse Practitioner Family; Visit Provider Surgery
PROC: 0DJD8ZZ Inspection of Lower Intestinal Tract, Via Natural or Artificial Opening Endoscopic (ICD-10-PCS; CPT 45378; principal; 2024-11-30 08:15)
DX: Z12.11 Encounter for screening for malignant neoplasm of colon (principal); D12.8 Benign neoplasm of rectum
CPT/HCPCS: 45380; 88305; J2003; J2704

== ENCOUNTER 2025-01-29 03:27 | Outpatient (CLI) | payer OTHER, SELFPAY ==
--- NOTE | 2025-01-29 | DI.MAMMO_ITS ---
Exam(s) MAMMO SCREENING EXAM: MAMMO SCREENING CLINICAL HISTORY: screening,z12.39 TECHNIQUE: Bilateral full field digital CC and MLO mammographic images were obtained with 3D tomosynthesis and utilizing computer aided detection (CAD). COMPARISON: Comparison is made with prior examinations. FINDINGS: Masses/Architectural Distortion: No suspicious masses or areas of architectural distortion are present. Microcalcifications: No suspicious pleomorphic-type are seen. Skin Thickening/Nipple Retraction: None. IMPRESSION: 1. No significant interval change with no specific features of malignancy noted. 2. Unless there is more urgent need, screening mammography is recommended, as per [place] [employer] guidelines. BI-RADS Category 1 - Negative Breast Density - Category B - There are scattered areas of fibroglandular density. Breast density Category C or D implies that the patient has dense breast tissue. Dense breast tissue can make it harder to find cancer on a mammogram. Dense breast tissue is also associated with an increased risk of breast cancer. This information about the result of the mammogram report was provided to the patient to raise their awareness. Use this report when you speak with the patient about their risks for breast cancer, which includes their family history. At that time, you may recommend additional screening tests (Ultrasound or MRI) as these tests may add significant information. A negative radiographic report should not delay biopsy if a dominant or clinically suspicious mass is present. Up to ten percent of cancers are not identified on mammography. A negative report may reinforce clinical impression. Adenosis and dense breasts may obscure an underlying neoplasm. False positive reports average 6 to 10%. Patient will receive a letter notifying them of these results.
== END 2025-01-29 03:47 ==
LOC: DI 03:27
PROVIDERS: PCP Nurse Practitioner Family; Visit Provider Nurse Practitioner Family
DX: Z12.31 Encounter for screening mammogram for malignant neoplasm of breast (principal)
CPT/HCPCS: 77063; 77067

== ENCOUNTER 2025-01-29 03:51 | Outpatient (CLI) | payer OTHER, SELFPAY ==
[2025-01-29 07:30] LABS: Hemoglobin A1C 5.9 % (<5.7)
[2025-01-29 07:41] LABS: Calculated LDL 118 mg/dL (<100); Cholesterol 214 mg/dL (<200); HDL Cholesterol 45 mg/dL (>or=50); Triglyceride 258 mg/dL (<150)
== END 2025-01-29 03:52 | disposition home or self-care (01) ==
LOC: LBO 03:51
PROVIDERS: PCP Nurse Practitioner Family; Visit Provider Nurse Practitioner Family
DX: Z13.220 Encounter for screening for lipoid disorders (principal); Z13.1 Encounter for screening for diabetes mellitus
CPT/HCPCS: 36415; 80061; 83036

== ENCOUNTER 2025-04-18 14:29 | Outpatient (CLI) | payer OTHER, SELFPAY ==
--- NOTE | 2025-04-18 08:30 | DI.RAD_ITS ---
Exam(s) XR KNEE LT 2V AP,LAT EXAM: XR KNEE LT 2V AP,LAT CLINICAL HISTORY: ANNUAL F/U L TKA. TECHNIQUE: 2D digital imaging was performed. COMPARISON: CR XR KNEE LT 3V AP,LAT,PRIYANKA from 07/18/2024 FINDINGS: Two views There is stable position alignment of the components of the prosthesis with no fracture or loosening evident. Again noted is evidence of prior proceeding ACL surgery. IMPRESSION: Stable satisfactory appearance DATA REPOSITORY: RADIATION DOSE DELIVERED:
== END 2025-04-18 14:30 | disposition home or self-care (01) ==
LOC: DIORS 14:30
PROVIDERS: PCP Nurse Practitioner Family; Visit Provider Student in an Organized Health Care Education/Training Program
DX: Z96.652 Presence of left artificial knee joint (principal)
CPT/HCPCS: 73560